=== PATIENT | female | born 1990 | race Caucasian/White ===

== ENCOUNTER → 2017-03-29 14:42 | Outpatient (CLI) | payer OTHER, SELFPAY ==
[2017-03-29 20:20] LABS: Thyroid Stim Hormone (TSH) 1.82 uIU/mL (0.358-3.74)
== END ==
PROVIDERS: Family Provider Family Medicine; PCP Family Medicine; Visit Provider Obstetrics & Gynecology
DX: E03.9 Hypothyroidism, unspecified (principal)
CPT/HCPCS: 84443

== ENCOUNTER → 2017-06-07 13:13 | Outpatient (CLI) | payer OTHER, SELFPAY ==
[2017-06-07 14:17] LABS: Hematocrit 36.1 % (37-47); Mean Corp Hgb Conc 33.2 g/gl (32-36); Mean Corpuscular Hgb 30.4 pg (27.0-32.0); Mean Corpuscular Volume 91.4 fL (81-99); Mean Platelet Vol. 10.3 fl (6.2-12.0); Platelet Count 329 K/mm3 (150-450); RBC Distribution Width SD 43.4 fl (35.1-43.9); Red Blood Count 3.95 M/mm3 (4.2-5.4); White Blood Count 12.9 K/mm3 (4.4-11.0)
[2017-06-07 14:18] LABS: Scan Indicated on CBC? Y/N NO
[2017-06-07 14:35] LABS: Glucose Challenge Gest 1H 50g 114 mg/dL (70-140); Thyroid Stim Hormone (TSH) 1.61 uIU/mL (0.358-3.74)
== END ==
PROVIDERS: Visit Provider Obstetrics & Gynecology
DX: O99.280 Endocrine, nutritional and metabolic diseases complicating pregnancy, unspecified trimester (principal); E03.9 Hypothyroidism, unspecified; Z3A.00 Weeks of gestation of pregnancy not specified
CPT/HCPCS: 82950; 84443; 85027

== ENCOUNTER → 2017-06-21 16:21 | Outpatient (CLI) | payer OTHER, SELFPAY ==
[2017-06-21 17:08] LABS: ROM Internal Control Test YES-OK TO RESULT pt. (Internal QC); ROM Patient Test Negative (Negative)
== END ==
PROVIDERS: Visit Provider Obstetrics & Gynecology
DX: O26.899 Other specified pregnancy related conditions, unspecified trimester (principal); Z3A.00 Weeks of gestation of pregnancy not specified
CPT/HCPCS: 84112

== ENCOUNTER → 2017-08-01 18:26 | Outpatient (CLI) | payer OTHER, SELFPAY ==
[2017-08-01 19:46] LABS: Group B Strep DNA By PCR Negative (Negative); Internal Control PASS; Probe Check PASS; Specimen Processing Control PASS
== END ==
PROVIDERS: Family Provider Family Medicine; PCP Family Medicine; Visit Provider Obstetrics & Gynecology
DX: Z36.85 Encounter for antenatal screening for Streptococcus B (principal)
CPT/HCPCS: 87081; 87653

== ENCOUNTER 2017-08-20 01:08 | Inpatient (IN) | payer OTHER, SELFPAY ==
[2017-08-20] VITALS (28 sets, daily range): BP systolic 109–132; BP diastolic 44–77; PULSE 94–134; RESP 16–18; TEMP 36.6–37.1; O2SAT 96–100; BMI 25.3
[2017-08-20] MEDS: Lactated Ringers 1,000 ML 999 ML IV (02:00)
[2017-08-20 02:05] LABS: ROM Internal Control Test YES-OK TO RESULT pt. (Internal QC)
[2017-08-20 02:06] LABS: ROM Patient Test POSITIVE (Negative)
[2017-08-20 02:11] LABS: Hematocrit 33.7 % (37-47); Hemoglobin 11.2 g/dl (12.0-15.0); Mean Corp Hgb Conc 33.2 g/gl (32-36); Mean Corpuscular Hgb 27.7 pg (27.0-32.0); Mean Corpuscular Volume 83.4 fL (81-99); Mean Platelet Vol. 11.8 fl (6.2-12.0); Platelet Count 389 K/mm3 (150-450); RBC Distribution Width CV 14.5 % (11.6-14.6); RBC Distribution Width SD 42.5 fl (35.1-43.9); Red Blood Count 4.04 M/mm3 (4.2-5.4); White Blood Count 12.9 K/mm3 (4.4-11.0)
--- NOTE | 2017-08-20 02:13 | PCM.DCCSEC ---
Discharge Diet: No Restrictions Discharge Activity: May not drive while taking narcotic pain medications., May Shower, May Take a Tub Bath Return to work on:: 10/15/17 May resume sexual activity in: 4-6 weeks Lifting Restrictions: 20 pounds Additional Activity Instructions:: Nothing in the vagina for 4-6 weeks. You may return to work/school in 6-8 weeks. Change Dressing in (Days):: 4 Remove Dressing in (days):: 4 Cleanse incision/area with: Soap & Water, Keep Dressing Clean & Dry Additional Instructions: If you experience any of the following, contact your healthcare provider. Bleeding that soaks a pad every hour for 2 hours Fever 100.4 or higher Unrelieved incision or abdominal pain Swelling, redness, discharge or bleeding from your incision Problems urinating (including inability to urinate or burning while urinating). Visual changes Severe headache Flu-like symptoms Pain or redness in one of both of your breasts Pain, warmth, tenderness or swelling in your legs, especially the calf area Frequent nausea and vomiting Symptoms of depression or anxiety If you experience any of the following, call 911 or go to the nearest Emergency Room. Chest pain Problems breathing Seizure activity Partial or complete paralysis of a body part, slurred speech, weakness or drooping of the face, or a sudden inability to walk or hold your balance Allergies/Adverse Reactions: Allergies Penicillins [PCN] Allergy (Verified 08/20/17 01:55) Unknown tramadol Adverse Reaction (Verified 08/20/17 01:55) Chest tightness Medications to take at Discharge Pnv95/Ferrous Fumarate/FA [ Formula Tablet] 1 each PO DAILY 09/01/15 Docusate Sodium [Colace] 100 mg PO BID PRN PRN #30 cap 08/20/17 Levothyroxine Sodium [Synthroid] 75 mcg PO DAILY 08/20/17 Naproxen [Naprosyn] 250 - 500 mg PO TID PRN PRN #30 tab 08/20/17 Oxycodone [Oxyir] 5 - 10 mg PO Q6H PRN PRN 7 Days #28 tablet 08/20/17 Sertraline HCl [Zoloft] 100 mg PO DAILY 08/20/17 The following prescriptions were given: Oxycodone [Oxyir] 5 - 10 mg PO Q6H PRN PRN 7 Days #28 tablet PRN Reason: Mod-Severe Pain (4-11/14) Docusate Sodium [Colace] 100 mg PO BID PRN PRN #30 cap PRN Reason: Constipation Naproxen [Naprosyn] 250 - 500 mg PO TID PRN PRN #30 tab PRN Reason: Mild-Mod Pain (1-06/14) Follow-Up: Call to make an appointment with your doctor for an incision check in 1-2 weeks. You will also need a 6 week post- follow up appointment. Test results from this visit will be discussed in further detail at your follow-up appointment, if applicable. Please Follow Up With: Art Buitrago MD - [phone] When: Call to make an appointment for an incision check in 2 weeks. Primary Care Physician: Sotero Li III, MD [Primary Care Provider] - Proposed Discharge Date: 08/23/17
[2017-08-20 02:14] LABS: Scan Indicated on CBC? Y/N NO
--- NOTE | 2017-08-20 02:21 | DCINST_ITS ---
Discharge Diet: No Restrictions Discharge Activity: May not drive while taking narcotic pain medications., May Shower, May Take a Tub Bath Return to work on:: 10/15/17 May resume sexual activity in: 4-6 weeks Lifting Restrictions: 20 pounds Additional Activity Instructions:: Nothing in the vagina for 4-6 weeks. You may return to work/school in 6-8 weeks. Change Dressing in (Days):: 4 Remove Dressing in (days):: 4 Cleanse incision/area with: Soap & Water, Keep Dressing Clean & Dry Additional Instructions: If you experience any of the following, contact your healthcare provider. * Bleeding that soaks a pad every hour for 2 hours * Fever 100.4 or higher * Unrelieved incision or abdominal pain * Swelling, redness, discharge or bleeding from your incision * Problems urinating (including inability to urinate or burning while urinating) . * Visual changes * Severe headache * Flu-like symptoms * Pain or redness in one of both of your breasts * Pain, warmth, tenderness or swelling in your legs, especially the calf area * Frequent nausea and vomiting * Symptoms of depression or anxiety If you experience any of the following, call 911 or go to the nearest Emergency Room. * Chest pain * Problems breathing * Seizure activity * Partial or complete paralysis of a body part, slurred speech, weakness or drooping of the face, or a sudden inability to walk or hold your balance Allergies/Adverse Reactions: Allergies Penicillins [PCN] Allergy (Verified 08/20/17 01:55) Unknown tramadol Adverse Reaction (Verified 08/20/17 01:55) Chest tightness Medications to take at Discharge Pnv95/Ferrous Fumarate/FA [ Formula Tablet] 1 each PO DAILY 09/01/15 Docusate Sodium [Colace] 100 mg PO BID PRN PRN #30 cap 08/20/17 Levothyroxine Sodium [Synthroid] 75 mcg PO DAILY 08/20/17 Naproxen [Naprosyn] 250 - 500 mg PO TID PRN PRN #30 tab 08/20/17 Oxycodone [Oxyir] 5 - 10 mg PO Q6H PRN PRN 7 Days #28 tablet 08/20/17 Sertraline HCl [Zoloft] 100 mg PO DAILY 08/20/17 The following prescriptions were given: Oxycodone [Oxyir] 5 - 10 mg PO Q6H PRN PRN 7 Days #28 tablet PRN Reason: Mod-Severe Pain (4-11/14) Docusate Sodium [Colace] 100 mg PO BID PRN PRN #30 cap PRN Reason: Constipation Naproxen [Naprosyn] 250 - 500 mg PO TID PRN PRN #30 tab PRN Reason: Mild-Mod Pain (1-06/14) Follow-Up: Call to make an appointment with your doctor for an incision check in 1-2 weeks. You will also need a 6 week post- follow up appointment. Test results from this visit will be discussed in further detail at your follow- up appointment, if applicable. Please Follow Up With: Art Buitrago MD - [phone] When: Call to make an appointment for an incision check in 2 weeks. Primary Care Physician: Sotero Li III, MD [Primary Care Provider] - Proposed Discharge Date: 08/23/17
[2017-08-20] MEDS: Sodium Citrate/Citric Acid 30 ML UDC PO ×2 (02:54→03:00)
[2017-08-20] MEDS: Lactated Ringers 1,000 ML 150 ML IV (03:00)
[2017-08-20] MEDS: Cefazolin 2 GM in 0.9% Normal Saline 100 ML IV (03:15)
--- NOTE | 2017-08-20 03:56 | PCM.OP.BLANK ---
Operative Report Date of Procedure: 08/20/17 PROCEDURE: Primary C section. Preoperative diagnosis: 38 3/7 wk EGA SROM Breech presentation, miguel Postop diagnosis: 38 3/7 wk EGA SROM Breech presentation, miguel Anesthesia: Spinal Mayra Boswell MD Surgeon: Cassi Kaminski MD Facilities Maintenance Manager: BC Gong LOCAL GOVERNMENT LEGISLATOR CALLED to attend : Dr. Reza. EBL 600 cc Complications: none Drains: Hussein draining clear yellow Fluids: replacement LR Findings: At amniotomy, minimal fluid noted consistent with SROM. Montilla viable female in miguel breech presentation. Apgars 6/6/9, Baby weight 6# 13 oz. There were normal appearing fallopian tubes and ovaries bilaterally, and a normal appearing uterus PATH: routine cord gas sent. Narrative account: After the risks, benefits and alternatives of the procedure were reviewed with the patient, informed consent was obtained. The patient was taken to the Operating room with an IV running, and placed in a seated position on the operating table for placement of the spinal. Once the spinal had been administered, she was briefly frog-legged for Hussein catheter placement, and then repositioned to dorsal supine position with leftward displacement of the uterus, and prepped and draped in the usual sterile fashion. Once the spinal was deemed adequate, a Pfannenstiel skin incision was created using the knife. The incision was carried down to the rectus fascia using the knife. The fascia was nicked in the midline. The fascial incision was extended bilaterally using curved Sanchez scissors. The superior aspect of the fascial incision was grasped with Jodi clamps and tented up and the underlying rectus abdominal muscles were dissected free. In a similar manner, the inferior aspect of the facial incision was grasped with Jodi clamps tented up and the underlying rectus abdominal muscles were dissected free. The rectus abdominis muscles were in the midline and the peritoneum was identified and entered by blunt dissection high in the incision. The peritoneal incision was extended superiorly and then inferiorly The peritoneum was stretched laterally and a bladder blade was inserted. A bladder flap was created long the lower uterine segment. The uterine incision was then created using Metzenbaum scissors. The operators fingertips were used to extend the uterine incision by blunt dissection in a caudad- cephalad orientation . The breech was then delivered up to the level of the shoulders. The arms were reduced and the head delivered easily. The OP and nares were bulb suctioned on the abdomen. The baby initially had a spontaneous vigorous cry. The cord was clamped x two and cut. And the was handed off to the nurse awaiting delivery after briefly showing her to her mother and father. The umbilical cord was doubly clamped for routine cord gas(es). The placenta was then delivered. The uterus was exteriorized and cleared of clots and debris. The uterine incision was repaired with 1 Vicryl in a running locked fashion. A second imbricating layer was then placed, using 1 Monocryl in running nonlocked fashion. At this point the uterus was returned to the abdominal cavity. The gutters were cleared of clots and debris and the incision at the uterus was inspected. Excellent hemostasis was noted. The peritoneal edges and rectus abdominis muscles were reapproximated in the midline with vertical mattress stitches and figure of eight stitches of 1 Vicryl . Bovie cautery was used for hemostasis at the subfascial space and Elas was applied to this layer. A figure of eight suture was placed at the R lower anterior rectus body for a superficial bleeding vessel noted there. The fascia was then closed in a running nonlocked fashion with a Stratofix suture. The Subcutaneous fatty tissue was Bovie cauterized as needed for hemostasis. Elsa was liberally dusted at this layer. This layer was then reapproximated with a single layer of running 3-0 Vicryl to eliminate space. The skin edges were closed in a Subcuticular stitch of 4-0 Vicryl. The incision was cleansed. Cavilon, Steristrips, and a Mepilex dressing were then applied. The patient was then transferred to the recovery room bed in stable condition after tolerating the procedure well. Sponge, lap, needle and instrument counts correct times two. Medications given preop and intraoperatively included: Ancef 2 gm given personal protection specialist to the operating room. The patient also received Pitocin given IV after cord clamp, and Toradol 30 mg IV times one. For a complete listing of medications given preop and intraoperatively, please see the anesthesia record.
[2017-08-20] MEDS: Lactated Ringers 1,000 ML 100 ML IV ×2 (04:40→06:47)
--- NOTE | 2017-08-20 06:25 | EKGRS_ITS ---
Test Reason : INCR HR Blood Pressure : / mmHG Vent. Rate : 119 BPM Atrial Rate : 119 BPM P-R Int : 116 ms QRS Dur : 074 ms QT Int : 322 ms P-R-T Axes : 064 049 027 degrees QTc Int : 452 ms Sinus tachycardia Per ekg machine/ done on mom, not baby Confirmed by MARQUIS ZAVALA, FRANCISCO ([id number]), continuity editor STEVE BRADSHAW ([id number]) on 08/28/2017 12:53:37 PM Referred By: ALO Confirmed By:FRANCISCO CHO MD
[2017-08-20] MEDS: Levothyroxine 75 MCG Tablet PO (06:46)
[2017-08-20 07:16] LABS: Absolute Lymphocyte Count 1.13 X10^3/ul (0.83-4.51); Absolute Neutrophil Count 18.8 X10^3/uL (2.0-7.7); Basophil# 0.02 X10^3/uL; Basophil% 0.1 % (0-1); Eosinophil# 0.03 X10^3/uL; Eosinophils% 0.1 % (0-5); Hematocrit 30.1 % (37-47); Hemoglobin 9.8 g/dl (12.0-15.0); Lymphocyte # 1.13 X10^3/ul (4.0); Lymphocyte % 5.2 % (19-41); Mean Corp Hgb Conc 32.6 g/gl (32-36); Mean Corpuscular Hgb 27.1 pg (27.0-32.0); Mean Corpuscular Volume 83.4 fL (81-99); Mean Platelet Vol. 10.7 fl (6.2-12.0); Monocyte% 7.4 % (0-10); Neutrophil # 18.77 X10^3/uL (2.7-7.7); Neutrophil % 87.1 % (47-70); Platelet Count 289 K/mm3 (150-450); RBC Distribution Width CV 14.7 % (11.6-14.6); RBC Distribution Width SD 44.7 fl (35.1-43.9); Red Blood Count 3.61 M/mm3 (4.2-5.4); White Blood Count 21.6 K/mm3 (4.4-11.0)
[2017-08-20 07:19] LABS: Differential Indicated SCAN CRITERIA MET; POSITIVE COUNT NO; POSITIVE DIFFERENTIAL YES; POSITIVE MORPHOLOGY NO
--- NOTE | 2017-08-20 07:30 | NURSING ---
Dr. Kaminski at bedside. LARC addressed and patient declined. Dr. Kaminski states she will sign LARC form at a later time.
[2017-08-20] MEDS: Prenatal Vits Tablet 1 TABLET PO (10:11)
[2017-08-20] MEDS: Ketorolac 30 MG/ML Syringe IV ×3 (10:13→21:39)
[2017-08-20] MEDS: 0.9% Saline Lock 10 ML Syringe IV ×2 (10:14→15:58)
--- NOTE | 2017-08-20 15:00 | NURSING ---
Patient up to chair for first time with minimal nursing assistance. Tolerated transfer well. No symptoms upon transfer.
[2017-08-20] MEDS: Sertraline 100 MG Tablet PO (21:39)
[2017-08-21 02:00] VITALS: RESP 16; O2SAT 100
[2017-08-21] MEDS: Ketorolac 30 MG/ML Syringe IV ×2 (03:48→10:11)
[2017-08-21] MEDS: 0.9% Saline Lock 10 ML Syringe IV ×2 (03:51→10:11)
[2017-08-21 04:00] VITALS: BP 117/70; PULSE 100; RESP 16; TEMP 36.6; O2SAT 98
[2017-08-21 05:14] LABS: Hematocrit 28.2 % (37-47); Hemoglobin 9.2 g/dl (12.0-15.0); Mean Corp Hgb Conc 32.6 g/gl (32-36); Mean Corpuscular Hgb 27.5 pg (27.0-32.0); Mean Corpuscular Volume 84.4 fL (81-99); Mean Platelet Vol. 11.1 fl (6.2-12.0); Platelet Count 312 K/mm3 (150-450); RBC Distribution Width CV 14.7 % (11.6-14.6); RBC Distribution Width SD 42.9 fl (35.1-43.9); Red Blood Count 3.34 M/mm3 (4.2-5.4); White Blood Count 15.5 K/mm3 (4.4-11.0)
[2017-08-21 05:28] LABS: Scan Indicated on CBC? Y/N NO
--- NOTE | 2017-08-21 06:49 | PCM.PN.OB ---
Subjective: Patient without complaints. Tolerating diet well. Positive flatus. Breast-feeding going well. - Physical Exam Vital Signs Temp Pulse Resp BP Pulse Ox 97.8 F 100 16 117/70 98 08/21/17 04:00 08/21/17 04:00 08/21/17 04:00 08/21/17 04:00 08/21/17 04:00 Oxygen Delivery Method Room Air Weight: 157 lb Body Mass Index (BMI) 25.3 Intake and Output for Last 24 Hours 08/19/17 08/20/17 08/21/17 23:59 23:59 23:59 Intake Total 5889 / 5889 Output Total 2600 / 2600 700 / 700 Balance 3289 / 3289 -700 / -700 Laboratory Tests Past 24 Hrs 08/20/17 08/21/17 06:55 04:00 WBC 21.6 H 15.5 H RBC 3.61 L 3.34 L Hgb 9.8 L 9.2 L Hct 30.1 L 28.2 L MCV 83.4 84.4 MCH 27.1 27.5 MCHC 32.6 32.6 RDW 14.7 H 14.7 H RDW Differential 44.7 H 42.9 Plt Count 289 312 MPV 10.7 11.1 Immature Gran % (Auto) 0.100 Neut % (Auto) 87.1 H Lymph % (Auto) 5.2 L [place] % (Auto) 7.4 Eos % (Auto) 0.1 Baso % (Auto) 0.1 Absolute Neuts (auto) 18.8 H Absolute Lymphs (auto) 1.13 Total Counted Not Reportable Differential Comment COMMENT Diff Path Review May foll Wound is clean, dry, intact. Good urine output. Hemoglobin okay. Medical Necessity - Tobacco Use Smoking Status: Never smoker Assessment/Plan Doing well postoperative day #1 primary for breech. Continuing present care.
[2017-08-21] MEDS: Levothyroxine 75 MCG Tablet PO (07:24)
[2017-08-21 08:00] VITALS: BP 112/68; PULSE 93; RESP 18; TEMP 36.9; O2SAT 95
[2017-08-21 09:45] LABS: Pathologist Review Reviewed
[2017-08-21] MEDS: Prenatal Vits Tablet 1 TABLET PO (10:21)
[2017-08-21 15:30] VITALS: BP 96/65; PULSE 98; RESP 20; TEMP 36.7; O2SAT 96
[2017-08-21] MEDS: Naproxen 250 MG Tablet PO (15:50)
[2017-08-21] MEDS: Acetaminophen 500 MG Tablet 1000 MG PO (16:45)
[2017-08-21 19:55] VITALS: BP 98/71; PULSE 94; RESP 18; TEMP 36.5; O2SAT 99
[2017-08-21] MEDS: Sertraline 100 MG Tablet PO (21:47)
[2017-08-22] MEDS: Naproxen 250 MG Tablet PO (00:13)
[2017-08-22 01:15] VITALS: BP 103/73; PULSE 94; RESP 18; TEMP 36.6
[2017-08-22] MEDS: Acetaminophen 500 MG Tablet 1000 MG PO (01:20)
[2017-08-22] MEDS: Levothyroxine 75 MCG Tablet PO (05:57)
[2017-08-22] MEDS: Prenatal Vits Tablet 1 TABLET PO (07:47)
[2017-08-22 07:52] VITALS: BP 119/71; PULSE 104; RESP 16; TEMP 36.7; O2SAT 96
--- NOTE | 2017-08-22 09:27 | PCM.PN.OB ---
Subjective: Patient without complaints. Tolerating diet well. Ready to go home today. - Physical Exam Vital Signs Temp Pulse Resp BP Pulse Ox 98.0 F 104 H 16 119/71 96 08/22/17 07:52 08/22/17 07:52 08/22/17 07:52 08/22/17 07:52 08/22/17 07:52 Oxygen Delivery Method Room Air Weight: 157 lb Body Mass Index (BMI) 25.3 Intake and Output for Last 24 Hours 08/20/17 08/21/17 08/22/17 23:59 23:59 23:59 Intake Total 5889 / 5889 Output Total 2600 / 2600 700 / 700 Balance 3289 / 3289 -700 / -700 Laboratory Tests Past 24 Hrs 08/20/17 06:55 Diff Path Review Reviewed Medical Necessity - Tobacco Use Smoking Status: Never smoker Assessment/Plan Doing well. Will release to home with routine instructions.
== END 2017-08-22 10:15 | disposition home or self-care (01) | DRG 766 ==
PROVIDERS: Admitting Provider Obstetrics & Gynecology; Family Provider Family Medicine; PCP Family Medicine; Visit Provider Obstetrics & Gynecology
DX: O99.344 Other mental disorders complicating childbirth (principal); O32.1XX0 Maternal care for breech presentation, not applicable or unspecified; F41.9 Anxiety disorder, unspecified; Z3A.38 38 weeks gestation of pregnancy; Z37.0 Single live birth; Z79.899 Other long term (current) drug therapy
CPT/HCPCS: 59025; 59050; 84112; 85025; 85027; 86850; 86900; 93005; 99218; J7120; A4216; G0378; J2405

== ENCOUNTER → 2017-10-10 15:08 | Outpatient (CLI) | payer OTHER, SELFPAY ==
[2017-10-10 16:19] LABS: Thyroid Stim Hormone (TSH) 0.18 uIU/mL (0.358-3.74)
== END ==
PROVIDERS: Visit Provider Obstetrics & Gynecology
DX: E03.9 Hypothyroidism, unspecified (principal)
CPT/HCPCS: 36415; 84443

== ENCOUNTER → 2017-12-22 10:49 | Outpatient (CLI) | payer OTHER, SELFPAY ==
[2017-12-22 12:29] LABS: Thyroid Stim Hormone (TSH) 0.78 uIU/mL (0.358-3.74)
== END ==
PROVIDERS: Family Provider Family Medicine; PCP Family Medicine; Referring Provider Obstetrics & Gynecology; Visit Provider Obstetrics & Gynecology
DX: E03.9 Hypothyroidism, unspecified (principal)
CPT/HCPCS: 36415; 84443

== ENCOUNTER → 2018-06-25 | Outpatient (CLI) | payer OTHER, SELFPAY ==
[2018-06-05 16:58] VITALS: BMI 23.0
[2018-06-25 12:54] LABS: Absolute Lymphocyte Count 1.76 X10^3/ul (0.83-4.51); Absolute Neutrophil Count 5.2 X10^3/uL (2.0-7.7); Basophil# 0.03 X10^3/uL; Basophil% 0.4 % (0-1); Eosinophil# 0.23 X10^3/uL; Eosinophils% 2.9 % (0-5); Hematocrit 40.1 % (37-47); Hemoglobin 12.8 g/dl (12.0-15.0); Lymphocyte # 1.76 X10^3/ul (4.0); Lymphocyte % 22.3 % (19-41); Mean Corp Hgb Conc 31.9 g/gl (32-36); Mean Corpuscular Hgb 26.7 pg (27.0-32.0); Mean Corpuscular Volume 83.7 fL (81-99); Mean Platelet Vol. 10.1 fl (6.2-12.0); Monocyte# 0.65 X10^3/uL; Monocyte% 8.2 % (0-10); Neutrophil # 5.22 X10^3/uL (2.7-7.7); Neutrophil % 66.1 % (47-70); Platelet Count 392 K/mm3 (150-450); RBC Distribution Width CV 15.3 % (11.6-14.6); RBC Distribution Width SD 46.7 fl (35.1-43.9); Red Blood Count 4.79 M/mm3 (4.2-5.4); White Blood Count 7.9 K/mm3 (4.4-11.0)
[2018-06-25 12:55] LABS: POSITIVE COUNT NO; POSITIVE DIFFERENTIAL NO; POSITIVE MORPHOLOGY NO
[2018-06-25 13:23] LABS: Anion Gap 7 (5-15); BUN 10 mg/dL (7-18); BUN/Creat Ratio 12.2 RATIO (10-20); Calcium,Total 8.7 mg/dL (8.5-10.1); Chloride 106 mmol/L (98-107); Creatinine, Serum 0.82 mg/dL (0.55-1.02); EST Glomerular Filtration Rate 90 mL/min (>60); Est Glom Filt Rate - Afr Amer 109 mL/min (>60); Glucose 114 mg/dL (74-106); Potassium 3.7 mmol/L (3.5-5.1); Sodium Level 141 mmol/L (136-145); Thyroid Stim Hormone (TSH) 3.37 uIU/mL (0.358-3.74)
== END | disposition home or self-care (01) ==
LOC: LAB 11:56
PROVIDERS: Family Provider Internal Medicine; PCP Internal Medicine; Referring Provider Internal Medicine; Visit Provider Internal Medicine
DX: E03.9 Hypothyroidism, unspecified (principal)
CPT/HCPCS: 36415; 80048; 84443; 85025

== ENCOUNTER → 2018-09-27 | Outpatient (CLI) | payer OTHER, SELFPAY ==
[2018-09-26 18:01] VITALS: BMI 25.4
[2018-09-27 13:22] LABS: Thyroid Stim Hormone (TSH) 2.03 uIU/mL (0.358-3.74)
[2018-10-02 10:24] LABS: T3 Reverse 16.7 ng/dL (9.2-24.1)
[2018-10-02 10:25] LABS: ANTINUCLEAR ANTIBODIES DIRECT Negative (Negative)
== END | disposition home or self-care (01) ==
PROVIDERS: Family Provider Internal Medicine; PCP Internal Medicine; Referring Provider Internal Medicine; Visit Provider Internal Medicine
DX: E03.9 Hypothyroidism, unspecified (principal); R53.83 Other fatigue
CPT/HCPCS: 36415; 84443; 84482; 86038; 86225; 86235

== ENCOUNTER → 2018-10-02 | Outpatient (CLI) | payer OTHER, SELFPAY ==
[2018-09-26 18:01] VITALS: BMI 25.4
--- NOTE | 2018-10-02 12:06 | EKG12_ITS ---
Test Reason : TACHYCARDIA Blood Pressure : / mmHG Vent. Rate : 075 BPM Atrial Rate : 075 BPM P-R Int : 138 ms QRS Dur : 080 ms QT Int : 380 ms P-R-T Axes : 045 053 028 degrees QTc Int : 424 ms Normal sinus rhythm with sinus arrhythmia Normal ECG Confirmed by CHANDANA CARLOS ([id number]), communications editor CHAS VAUGHN ([id number]) on 10/08/2018 10:19:22 AM Referred By: Francesca Uribe Confirmed By:CHANDANA CARLOS
== END | disposition home or self-care (01) ==
LOC: CVS 12:05
PROVIDERS: Family Provider Internal Medicine; PCP Internal Medicine; Referring Provider Internal Medicine; Visit Provider Internal Medicine
DX: R00.0 Tachycardia, unspecified (principal)
CPT/HCPCS: 93005

== ENCOUNTER → 2019-01-17 08:21 | Outpatient (CLI) | payer OTHER, SELFPAY ==
[2018-12-04 16:46] VITALS: BMI 25.7
[2019-01-17 09:15] LABS: hCG Titer Quant., Serum 513 mIU/mL (1-3)
== END ==
PROVIDERS: Family Provider Internal Medicine; PCP Internal Medicine; Referring Provider Obstetrics & Gynecology; Visit Provider Obstetrics & Gynecology
DX: N91.2 Amenorrhea, unspecified (principal)
CPT/HCPCS: 36415; 84702

== ENCOUNTER → 2019-01-19 09:02 | Outpatient (CLI) | payer OTHER, SELFPAY ==
[2018-12-04 16:46] VITALS: BMI 25.7
[2019-01-19 10:22] LABS: Thyroid Stim Hormone (TSH) 3.01 uIU/mL (0.358-3.74)
[2019-01-19 10:26] LABS: hCG Titer Quant., Serum 1017 mIU/mL (1-3)
== END ==
PROVIDERS: Family Provider Internal Medicine; PCP Internal Medicine; Visit Provider Obstetrics & Gynecology
DX: E03.9 Hypothyroidism, unspecified (principal); N91.2 Amenorrhea, unspecified
CPT/HCPCS: 84443; 84702

== ENCOUNTER → 2019-02-06 12:18 | Outpatient (CLI) | payer OTHER, SELFPAY ==
[2018-12-04 16:46] VITALS: BMI 25.7
--- NOTE | 2019-02-06 12:19 | US_ITS ---
STUDY: FIRST TRIMESTER OBSTETRICAL ULTRASOUND REASON FOR EXAM: Female, 28 years old. Viability. LMP: December 20, 2018. TECHNIQUE: Transvaginal TECHNICAL QUALITY: Adequate. PRIOR ULTRASOUND: None. FINDINGS: There is visualization of a single gestational sac in a normal intrauterine position. The mean sac diameter (MSD) measures 2.3 cm, indicating an estimated gestational age (EGA) of 7 weeks, 2 days. The gestational sac shape is within normal limits. There is a visualized yolk sac. The yolk sac measures 0.23 cm. The placenta is non-visualized. There is visualization of a live embryo. The crown-rump length (CRL) measures 0.87 cm, indicating an estimated gestational age (EGA) of 6 weeks, 6 days. There is demonstrated cardiac activity with a heart rate of 135 bpm. The estimated gestation age (EGA) by LMP is 8 weeks, 6 days. The estimated date of delivery (DIO) by LMP is September 12, 2019. The estimated gestation age (EGA) by US is 7 weeks, 0 days. The estimated date of delivery (DIO) by US is September 25, 2019. The uterus measures 8.2 x 7.1 x 4.7 cm. There is a small subchorionic hemorrhage adjacent to the gestational sac. There is no demonstrated uterine fibroid. The cervix is closed. The right ovary measures 3.2 x 2.2 x 2.1 cm. There are multiple follicles of the right ovary without a dominant cyst. There is no visualized right adnexal mass or complex lesion. The left ovary measures 4.0 x 3.0 x 2.1 cm. There are multiple follicles of the left ovary without a dominant cyst. There is no visualized left adnexal mass or complex lesion. There is no fluid in the cul de sac. US/Transvaginal w/Preg US IMPRESSION: 1. Live single intrauterine at 7 weeks, 0 days. DIO is September 25, 2019. 2. heart rate of 125 bpm. 3. Small subchorionic hemorrhage. 4. Normal ovaries. Electronically Signed: Rogelio Cohen DO at 16:44 EST Tel [phone], Service support ,
== END ==
PROVIDERS: Family Provider Internal Medicine; PCP Internal Medicine; Referring Provider Obstetrics & Gynecology; Visit Provider Obstetrics & Gynecology
DX: O36.80X0 Pregnancy with inconclusive fetal viability, not applicable or unspecified (principal); Z3A.00 Weeks of gestation of pregnancy not specified
CPT/HCPCS: 76817

== ENCOUNTER → 2019-02-26 16:56 | Outpatient (CLI) | payer OTHER, SELFPAY ==
[2019-02-26 13:10] VITALS: BMI 25.4
[2019-02-26 18:09] LABS: Amphetamine Urine VISTA NEGATIVE (<1000 ng/mL); Barbiturate Urine VISTA NEGATIVE (< 200 ng/mL); Benzodiazepine Urine VISTA NEGATIVE (< 200 ng/mL); Cocaine Urine VISTA NEGATIVE (< 300 ng/mL); Ecstacy Urine VISTA NEGATIVE (< 500 ng/mL); Methadone Urine VISTA NEGATIVE (< 300 ng/mL); PCP Urine VISTA NEGATIVE (< 25 ng/mL); THC Urine VISTA NEGATIVE (< 50 ng/mL); Vista UDS pH Range 6
[2019-02-26 19:10] LABS: Chlamydia Trachomatis by PCR Negative (Negative); Neisserai gonorrhoeae by PCR Negative (Negative); Probe Check PASS; Sample Adequacy Control PASS; Specimen Processing Control PASS
[2019-03-03 17:06] LABS: HPV Reflexed? NOT INDICATED
== END ==
PROVIDERS: PCP Internal Medicine; Referring Provider Obstetrics & Gynecology; Visit Provider Obstetrics & Gynecology
DX: O99.280 Endocrine, nutritional and metabolic diseases complicating pregnancy, unspecified trimester (principal); E05.90 Thyrotoxicosis, unspecified without thyrotoxic crisis or storm; Z3A.00 Weeks of gestation of pregnancy not specified
CPT/HCPCS: 80307; 87086; 87088; 87491; 87591; 88175; G0145

== ENCOUNTER → 2019-02-27 11:48 | Outpatient (CLI) | payer OTHER, SELFPAY ==
[2019-02-26 13:10] VITALS: BMI 25.4
[2019-02-27 12:41] LABS: Absolute Lymphocyte Count 1.53 X10^3/uL (0.83-4.51); Absolute Neutrophil Count 8.1 X10^3/uL (2.0-7.7); Basophil# 0.04 X10^3/uL; Basophil% 0.4 % (0-1); Eosinophil# 0.12 X10^3/uL; Eosinophils% 1.1 % (0-5); Hemoglobin 12.6 g/dL (12.0-15.0); Lymphocyte # 1.53 X10^3/ul (4.0); Lymphocyte % 14.6 % (19-41); Mean Corp Hgb Conc 33.2 g/dL (32-36); Mean Corpuscular Hgb 29.2 pg (27.0-32.0); Mean Corpuscular Volume 88.2 fL (81-99); Mean Platelet Vol. 10.4 fl (6.2-12.0); Monocyte# 0.64 X10^3/uL; Monocyte% 6.1 % (0-10); NRBC Flagged by Analyzer 0 % (0-5); Neutrophil # 8.14 X10^3/uL (2.7-7.7); Neutrophil % 77.5 % (47-70); Platelet Count 348 K/mm3 (150-450); RBC Distribution Width CV 16.6 % (11.6-14.6); RBC Distribution Width SD 53.5 fl (35.1-43.9); Red Blood Count 4.31 M/mm3 (4.2-5.4); White Blood Count 10.5 K/mm3 (4.4-11.0)
[2019-02-27 13:25] LABS: NATERA MAILED SPECIMEN
[2019-02-27 14:04] LABS: HIV - WCH Non-Reactive (Nonreactive); Hepatitis B Surface Antigen Non-Reactive (Nonreactive); Hepatitis C Antibody Non-Reactive (Nonreactive); Rubella IgG 120.5 IU/mL
[2019-03-06 03:15] LABS: Rapid Plasmin Reagin (RPR) NONREACTIVE (NONREACTIVE)
== END ==
PROVIDERS: PCP Internal Medicine; Referring Provider Obstetrics & Gynecology; Visit Provider Obstetrics & Gynecology
DX: O99.280 Endocrine, nutritional and metabolic diseases complicating pregnancy, unspecified trimester (principal); E05.90 Thyrotoxicosis, unspecified without thyrotoxic crisis or storm; Z3A.00 Weeks of gestation of pregnancy not specified
CPT/HCPCS: 36415; 84443; 85025; 86592; 86703; 86762; 86803; 86850; 86900; 86901; 87340

== ENCOUNTER → 2019-04-28 | Outpatient (CLI) | payer OTHER, SELFPAY ==
[2019-04-25 11:53] VITALS: BMI 25.4
[2019-04-28 09:50] LABS: Thyroid Stim Hormone (TSH) 2.38 uIU/mL (0.358-3.74)
== END | disposition home or self-care (01) ==
LOC: LAB 08:35
PROVIDERS: PCP Internal Medicine; Referring Provider Obstetrics & Gynecology; Visit Provider Obstetrics & Gynecology
DX: E03.9 Hypothyroidism, unspecified (principal)
CPT/HCPCS: 36415; 84443

== ENCOUNTER → 2019-07-02 08:58 | Outpatient (CLI) | payer OTHER, SELFPAY ==
[2019-06-06 10:31] VITALS: BMI 25.4
[2019-07-02 09:26] LABS: Absolute Lymphocyte Count 1.17 X10^3/uL (0.83-4.51); Absolute Neutrophil Count 9.9 X10^3/uL (2.0-7.7); Basophil# 0.04 X10^3/uL; Basophil% 0.3 % (0-1); Eosinophils% 1.7 % (0-5); Hematocrit 33.6 % (37-47); Hemoglobin 10.5 g/dL (12.0-15.0); Lymphocyte # 1.17 X10^3/ul (4.0); Lymphocyte % 9.7 % (19-41); Mean Corp Hgb Conc 31.3 g/dL (32-36); Mean Corpuscular Volume 89.6 fL (81-99); Mean Platelet Vol. 10.2 fl (6.2-12.0); Monocyte# 0.63 X10^3/uL; Monocyte% 5.2 % (0-10); NRBC Flagged by Analyzer 0 % (0-5); Neutrophil # 9.93 X10^3/uL (2.7-7.7); Neutrophil % 82.7 % (47-70); Platelet Count 320 K/mm3 (150-450); RBC Distribution Width CV 13.1 % (11.6-14.6); RBC Distribution Width SD 42.8 fl (35.1-43.9); Red Blood Count 3.75 M/mm3 (4.2-5.4)
[2019-07-02 09:46] LABS: Glucose Challenge Gest 1H 50g 138 mg/dL (70-140)
== END ==
PROVIDERS: PCP Internal Medicine; Referring Provider Obstetrics & Gynecology; Visit Provider Obstetrics & Gynecology
DX: Z34.90 Encounter for supervision of normal pregnancy, unspecified, unspecified trimester (principal)
CPT/HCPCS: 36415; 82950; 85025

== ENCOUNTER → 2019-07-08 | Outpatient (CLI) | payer OTHER, SELFPAY ==
[2019-06-06 10:31] VITALS: BMI 25.4
[2019-07-04 11:49] VITALS: BMI 25.4
[2019-07-08 09:33] LABS: Glucose GTT-Gestation. Fasting 89 mg/dL (<105)
[2019-07-08 10:38] LABS: Glucose GTT-Gestational 1 Hr 172 mg/dL (<190)
[2019-07-08 11:55] LABS: Glucose GTT-Gestational 2 Hr 145 mg/dL (<165)
[2019-07-08 12:56] LABS: Glucose GTT-Gestational 3 Hr 143 L (<145)
== END | disposition home or self-care (01) ==
LOC: LAB 08:46
PROVIDERS: PCP Internal Medicine; Referring Provider Obstetrics & Gynecology; Visit Provider Obstetrics & Gynecology
DX: O99.810 Abnormal glucose complicating pregnancy (principal); Z3A.00 Weeks of gestation of pregnancy not specified
CPT/HCPCS: 36415; 82951; 82952

== ENCOUNTER → 2019-08-04 | Outpatient (CLI) | payer OTHER, SELFPAY ==
[2019-08-01 11:42] VITALS: BMI 25.4
[2019-08-04 11:27] LABS: Absolute Lymphocyte Count 1.62 X10^3/uL (0.83-4.51); Absolute Neutrophil Count 10.4 X10^3/uL (2.0-7.7); Basophil# 0.05 X10^3/uL; Basophil% 0.4 % (0-1); Eosinophil# 0.14 X10^3/uL; Eosinophils% 1.1 % (0-5); Hematocrit 37.9 % (37-47); Hemoglobin 12.1 g/dL (12.0-15.0); Lymphocyte # 1.62 X10^3/ul (4.0); Lymphocyte % 12.3 % (19-41); Mean Corp Hgb Conc 31.9 g/dL (32-36); Mean Corpuscular Hgb 29.1 pg (27.0-32.0); Mean Corpuscular Volume 91.1 fL (81-99); Mean Platelet Vol. 10.5 fl (6.2-12.0); Monocyte# 0.92 X10^3/uL; NRBC Flagged by Analyzer 0 % (0-5); Neutrophil # 10.36 X10^3/uL (2.7-7.7); Neutrophil % 78.5 % (47-70); Platelet Count 300 K/mm3 (150-450); RBC Distribution Width CV 16.6 % (11.6-14.6); RBC Distribution Width SD 53.9 fl (35.1-43.9); Red Blood Count 4.16 M/mm3 (4.2-5.4); White Blood Count 13.2 K/mm3 (4.4-11.0)
[2019-08-04 11:50] LABS: Thyroid Stim Hormone (TSH) 1.89 uIU/mL (0.358-3.74)
== END | disposition home or self-care (01) ==
PROVIDERS: PCP Internal Medicine; Referring Provider Obstetrics & Gynecology; Visit Provider Obstetrics & Gynecology
DX: O99.012 Anemia complicating pregnancy, second trimester (principal); D64.9 Anemia, unspecified; O99.282 Endocrine, nutritional and metabolic diseases complicating pregnancy, second trimester; E03.9 Hypothyroidism, unspecified; Z3A.00 Weeks of gestation of pregnancy not specified
CPT/HCPCS: 36415; 84443; 85025

== ENCOUNTER → 2019-08-15 | Outpatient (CLI) | payer OTHER, SELFPAY ==
[2019-08-01 11:42] VITALS: BMI 25.4
[2019-08-15 11:44] VITALS: BMI 25.4
--- NOTE | 2019-08-15 13:35 | US_ITS ---
STUDY: SECOND AND THIRD TRIMESTER OBSTETRICAL ULTRASOUND REASON FOR EXAM: Female, 28 years old GROWTH LMP: December 19, 2018 TECHNIQUE: Transabdominal TECHNICAL QUALITY: Adequate. PRIOR ULTRASOUND: February 06, 2019. FINDINGS: There is a single intrauterine fetus. The fetus is in a cephalic presentation. There is demonstrated cardiac activity with a heart rate of 148 bpm. There is a normal amniotic fluid volume. The largest amniotic fluid pocket measures 4.1 cm. The amniotic fluid index (GUILLE) is 10.8 cm. The placenta is posterior in location and is not low lying. There are Grade 1 placental changes. The cervix measures 3.3 cm in length. The adnexal regions are not visualized. BIOMETRY: BPD: 8.23 cm: 33 weeks, 0 days HC: 30.51 cm: 33 weeks, 6 days AC: 30.93 cm: 30 weeks, 6 days FL: 6.4/7 on the: 33 weeks, 2 days CI: 80% FL/BPD: 79% FL/HC: FL/AC: 21% HC/AC: 0.99 age by current US: 33 weeks, 2 days. DIO by current US: October 01, 2019. Estimated weight: 2370 grams, +/- 351 grams, 45 %. age by prior US: 34 weeks, 1 days. DIO by prior US: September 25, 2019. Age by LMP: 34 weeks, 1 days. DIO by LMP: September 25, 2019. ANATOMY: Stable mild fullness of the bilateral renal pelves. US/OB Limited With Biometrics IMPRESSION: Single live intrauterine gestation with a mean gestational age of 34 weeks and 1 day. The measurements obtained today fall within the normal expected range. Electronically Signed: Conrad Celestin, at 8:23 EDT , Service support ,
== END | disposition home or self-care (01) ==
LOC: OPUS 13:35
PROVIDERS: PCP Internal Medicine; Visit Provider Obstetrics & Gynecology
DX: O26.849 Uterine size-date discrepancy, unspecified trimester (principal)
CPT/HCPCS: 76816

== ENCOUNTER → 2019-08-29 | Outpatient (CLI) | payer OTHER, SELFPAY ==
[2019-08-29 11:44] VITALS: BMI 25.4
== END | disposition home or self-care (01) ==
LOC: LABSPEC 16:22
PROVIDERS: PCP Internal Medicine; Referring Provider Obstetrics & Gynecology; Visit Provider Obstetrics & Gynecology
DX: O09.90 Supervision of high risk pregnancy, unspecified, unspecified trimester (principal); Z3A.00 Weeks of gestation of pregnancy not specified
CPT/HCPCS: 87081

== ENCOUNTER 2019-09-22 05:00 | Inpatient (IN) | payer OTHER, SELFPAY ==
[2019-09-12 11:30] VITALS: BMI 25.4
[2019-09-19 10:16] VITALS: BMI 25.4
[2019-09-22] VITALS (15 sets, daily range): BP systolic 96–119; BP diastolic 46–79; PULSE 77–111; RESP 16; TEMP 36.2–37.5; O2SAT 95–100; BMI 29.4
[2019-09-22] MEDS: Lactated Ringers 1,000 ML 999 ML IV (05:48)
[2019-09-22] MEDS: Acetaminophen 500 MG Tablet 1000 MG PO ×3 (05:59→19:20)
[2019-09-22 06:04] LABS: Absolute Lymphocyte Count 1.65 X10^3/uL (0.83-4.51); Absolute Neutrophil Count 8.3 X10^3/uL (2.0-7.7); Basophil# 0.03 X10^3/uL; Basophil% 0.3 % (0-1); Eosinophil# 0.14 X10^3/uL; Eosinophils% 1.3 % (0-5); Hemoglobin 13.2 g/dL (12.0-15.0); Lymphocyte # 1.65 X10^3/ul (4.0); Lymphocyte % 15.2 % (19-41); Mean Corpuscular Hgb 29.9 pg (27.0-32.0); Mean Corpuscular Volume 90.5 fL (81-99); Mean Platelet Vol. 11.5 fl (6.2-12.0); Monocyte# 0.72 X10^3/uL; Monocyte% 6.6 % (0-10); NRBC Flagged by Analyzer 0 % (0-5); Neutrophil # 8.28 X10^3/uL (2.7-7.7); POSITIVE COUNT YES; Platelet Count 159 K/mm3 (150-450); RBC Distribution Width CV 16.2 % (11.6-14.6); RBC Distribution Width SD 53.3 fl (35.1-43.9); Red Blood Count 4.42 M/mm3 (4.2-5.4); White Blood Count 10.9 K/mm3 (4.4-11.0)
[2019-09-22 06:06] LABS: Differential Indicated SCAN CRITERIA MET
[2019-09-22 06:14] LABS: Differential Comment SCANNED
[2019-09-22] MEDS: Lactated Ringers 1,000 ML 150 ML IV (06:49)
[2019-09-22] MEDS: Sodium Citrate/Citric Acid 30 ML UDC PO (07:07)
--- NOTE | 2019-09-22 07:23 | PCM.HPOB.BLA ---
- Problem List (1) Abnormal glucose affecting Status: Acute Comment: 3gtt nl (2) History of Status: Acute Comment: plan RLTCS due to cervix closed 08/20/2017. Desires 79% chance of success. handouts given. consent signed (3) Status: Acute Qualifiers: Comment: genetic testing- low risk, neg carrier screening in past. declined ntd screening. growth US normal (4) Supervision of high-risk Status: Acute Comment: PRR DIO 09-25-19 boy Efrain PC Shellie Spouse Eagle (5) Anxiety Status: Chronic Comment: Zoloft 50mg- denies depression, counseling encouraged (6) Hypothyroidism Status: Chronic Qualifiers: Comment: tested 1, 2, and 3rd TM. stable History and Physical Date of Admission: 09/22/19 Intake Vital Signs 09/19/19 Height 5 ft 3 in 09/19/19 Weight: 165 lb 09/19/19 BMI 29.2 09/19/19 BP 122/76 H Intake Visit Reasons: 39 WK OB Night Time Babysitter Required: No Is patient in pain?: No Allergies Penicillins [PCN] Allergy (Verified 09/19/19 10:12) Unknown tramadol Adverse Reaction (Verified 09/19/19 10:12) Chest tightness Medications Pnv No.95/Ferrous Fum/Folic AC [ Formula Tablet] 1 ea PO DAILY 09/01/15 [History Confirmed 09/19/19] sertraline 100 mg tablet 100 mg PO DAILY #90 tab 11/18/18 [Rx Confirmed 09/19/19] levothyroxine 50 mcg tablet 50 mcg PO DAILY #90 tab 01/22/19 [Rx Confirmed 09/19/19] ondansetron 4 mg disintegrating tablet 4 mg PO Q4H PRN #60 tab 03/17/19 [Rx Confirmed 09/19/19] Last Menstral Period: 12/06/18 Zika: Zika virus screening: Negative : No PFSH PFSH Medical History Anxiety (Chronic) Headaches, cluster (Chronic) Polycystic disease, ovaries (Chronic) Seasonal allergies (Chronic) Breast lump (Resolved) Hyperthyroidism (Resolved) UTI (urinary tract infection) (Resolved) Surgical History History of (Acute) Family History Mother Anxiety Hormonal disorder Grandmother Anxiety Heart disease Father Asthma Brother Depression Psychiatric care Grandfather Diabetes Hypertension Grandmother Thyroid disorder Other Cancer Social History (Updated 09/19/19 @ 13:[address] Elizabeth Sena MD) adopted: No household members: family housing: house number of children: 1 current occupational status: employed current occupation: Formerly [employer] current occupational exposures/hazards: No pets and animals: Yes history of recent travel: No sexually active: Yes Smoking Status: Never smoker second hand exposure: No alcohol intake: current alcohol intake frequency: holidays/special occasions only details: not while substance use type: does not use caffeine: Yes what type of physical activity do you participate in: aerobics frequency: 1-2 times per week seatbelt use: always do you feel safe at home: Yes 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 Date Name GA/Weeks Outcome Route Bth Weight [facility]17 Shellie 37 live - full term 6lbs 13oz Female spinal [facility] Dr. Gordy Guillermo Delivery Date: 08/20/17 On 02/26/19 @ 13:20 Cassi Cavanaugh No issues during . Breech- PPROM HPI 39 WK OB: Details: SHERYL ALFORD is a 28 year old @ 39w4d presents for RLTCS, cervix still closed so declines TOLAC at this time. consider TOLAC with next . OB Visit DIO Calculator Estimated Delivery Date Method Current WG Current Estimate 09/25/19 Ultrasound #1 39w 1d Other Estimates 09/12/19 LMP (Certain) 41w 0d Expected Delivery Route/Plan TOLAC if unfavorable at time of scheduled RCD patient counseled regarding risks/benefits of trial of labor versus repeat . ACOG and uptodate education given to patient. 76 % likelihood of success per calculator TOLAC consent form signed: yes Labor Preferences- labor support person: Eagle pain management options preferred: epidural cut cord/dad catch: yes : yes PP control planned: minipill discussed possible routes of delivery and associated risks: discussed possible delivery modalities and possible indications for each including R/B/A of , VAVD, and CS. questions answered. special requests: none Specific Issue/Plans flu vaccine: given tdap vaccine: given rhogam: na LARC form signed: yes movement and labor precautions reviewed. Problem list reviewed and updated with the most current plan of care details and appropriate orders placed. Relevant counseling for the gestational age provided. Continue routine care and follow up unless otherwise noted in visit notes/problem list details Initial Weight: 144 lb Date EGA Weight BP Urine Prot Glucose FHR FuHt Pres Dilation Effaced St Visit Note 02/26/19 9w 6d 144 lb (+0 oz) 112/70 160 03/28/19 14w 1d 146 lb (+2 lb) 132/70 Negative Negative 160 SM- no vb cramping 04/25/19 18w 1d 146 lb (+2 lb) 110/60 Negative Negative 150 SM- no vb cramping 06/06/19 24w 1d 151 lb (+7 lb) 120/66 Negative Negative 160 24 SM- no vb lof good fm no regular ctx 07/04/19 28w 1d 154 lb (+10 lb) 102/70 Negative Negative 153 28 MH-NO Vb, LOF. 3hr GTT scheduled. Reviewed use of FE. tdap. 07/18/19 30w 1d 156 lb 6 oz (+12 lb 6 oz) 118/64 Negative Negative 140 30 SM- no vb lof good fm no regular ctx 08/01/19 32w 1d 159 lb (+15 lb) 102/60 140 34 Sm- no vb lof good fm no regular ctx 08/15/19 34w 1d 161 lb (+17 lb) 118/60 Negative Negative 140 35 SM- no vb lof good fm no regular ctx. growth us today 08/29/19 36w 1d 164 lb 4 oz (+20 lb 4 oz) 140 36 Cephalic 0 SM- no vb lof good fm no regular ctx 09/05/19 37w 1d 166 lb 4 oz (+22 lb 4 oz) 118/70 Negative 1000 g/dL 135 37 Cephalic 0 SM- no vb lof good fm no regular ctx discussed delivery by 41 weeks 09/12/19 38w 1d 166 lb (+22 lb) 124/80 Negative Negative 135 38 Cephalic 0 SM- no vb lof good fm no regular ctx discussed RLTCS if not dilated 09/19/19 39w 1d 165 lb (+21 lb) 122/76 Negative Negative 150 39 Cephalic 0 GP - no LOF/VB/DFM/Ctx. Interested in TOLAC if dilated on Sunday, but otherwise plan RCD. ACOG First Trimester First Trimester: Discussed Diagnostics Diagnostics Diagnostics Gest Glucose Tolerance MG/DL 07/08/19 Glucose 1 Hr 50 gm 138 mg/dL (70-140) 07/02/19 Hgb 12.1 g/dL (12.0-15.0) 08/04/19 Hct 37.9 % (37-47) 08/04/19 Details: HIV: Urine Culture: Sequential Screen: NIPT Screen: ROS Const Reports fatigue, Reports increased appetite GI Denies constipation, Denies heartburn, Denies nausea, Denies vomiting Denies abnormal vaginal bleeding, Denies painful urination, Denies pelvic pain, Denies vaginal discharge Endo Reports fatigue Exam Const General: cooperative, healthy appearing, comfortable, no acute distress, well developed, well groomed HENMT Head: normal to inspection Resp Effort & Inspection: normal respiratory effort, able to speak in complete sentences, symmetric chest movement Cardio Rate: regular rate GI Palpation: soft, nontender, other (gravid) Extrem General: no pedal edema Psych Appearance: grossly normal, well kempt Mental Status: mental status grossly normal Mood: congruent mood Affect: normal affect Speech and Movement: speech and movement normal Attitude: cooperative Thought Process: normal Thought Content: normal Judgment: judgment good Results POC Urinalysis 2 Dip (Clinic) Office Urine Glucose Negative Last Edit by Cassi Cavanaugh on 09/19/19 10:15 Office Urine Protein Negative Last Edit by Cassi Cavanaugh on 09/19/19 10:15 Assessment & Plan Problems 1. Anxiety F41.9 2. Acquired hypothyroidism E03.9 3. H/O section Z98.891 4. 39 weeks gestation of Z3A.39 5. Abnormal glucose affecting O99.810 6. Supervision of high-risk O09.90 PLAN rltcs After discussing the patient's diagnosis and treatment plan options, patient wishes to proceed with surgical management. I have discussed with the patient the risks, benefits, and alternatives of the procedure which include but are not limited to risks of anesthesia, bleeding, infection, possible damage to bowel, bladder, or surrounding vasculature which could lead to additional surgery to evaluate any complications. Patient agrees to procedure and wishes to proceed. Coding Level of Care Code OB Routine Diagnoses Anxiety F41.9 Acquired hypothyroidism E03.9 ??Hypothyroidism type: acquired H/O section Z98.891 39 weeks gestation of Z3A.39 ??Weeks of gestation: 39 weeks Abnormal glucose affecting O99.810 Supervision of high-risk O09.90 .HP
[2019-09-22] MEDS: Cefazolin 2 GM in 0.9% Normal Saline 100 ML IV (07:24)
--- NOTE | 2019-09-22 07:26 | PCM.OPRPT ---
Problem List (1) Abnormal glucose affecting Status: Acute Comment: 3gtt nl (2) History of Status: Acute Comment: plan RLTCS due to cervix closed 08/20/2017. Desires 79% chance of success. handouts given. consent signed (3) Status: Acute Qualifiers: Comment: genetic testing- low risk, neg carrier screening in past. declined ntd screening. growth US normal (4) Supervision of high-risk Status: Acute Comment: PRR DIO 09-25-19 boy Efrain PC Shellie Spouse [employer] (5) Anxiety Status: Chronic Comment: Zoloft 50mg- denies depression, counseling encouraged (6) Hypothyroidism Status: Chronic Qualifiers: Comment: tested 1, 2, and 3rd TM. 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 Spinal anesthesia was placed without difficulty. Hussein catheter was placed. The patient was placed in the dorsal supine position with leftward tilt. Patient was prepped and draped in the normal sterile fashion. Pfannenstiel skin incision was made with the scalpel and carried through to the underlying layer of fascia with the scalpel. Fascia was nicked in the midline and the incision extended laterally. The rectus bellies were dissected off superiorly and inferiorly with out complication both sharply and bluntly. The peritoneum was entered digitally. The incision was stretched and a low transverse uterine incision was made with the scalpel. The 's head was delivered atraumatically followed by the anterior and posterior shoulders without complication the rest of the delivered. The cord was clamped and cut and the infant was handed off to awaiting nurse. The placenta was delivered spontaneously immediately following and was noted to be intact and have a three-vessel cord. The uterus was exteriorized cleared of all clots and debris, and the incision was closed in a double layer closure using #1 Monocryl. The ovaries and fallopian tubes were noted to be within normal limits. The uterus was returned to the maternal abdomen and gutters were cleared of all clots and debris. The peritoneum was closed with 3-0 Monocryl in a running fashion. Gloves were changed prior to fascial closure. Fascia was closed with 0 PDS in a running fashion. Subcutaneous tissue was copiously irrigated and the skin was closed with 3-0 Monocryl in a subcuticular fashion. Mepilex dressing was applied without complication. Patient was taken to recovery in stable condition. It was discussed with the patient that based on the clinical information obtained during this encounter, combined with her history, at this time I would recommend or vaginal for future deliveries if further pregnancies are desired. Amniotic Membrane Rupture Type: Artificial Amniotic Fluid Description: Clear Placenta Disposition: [facility] Drain: Hussein to straight drain Cord Entanglement: None Esitmated Blood Loss (ml): 700 Infant Gender: Male Delayed cord clamping: Yes Antibiotic Given: Ancef 2 grams IV x1 - PCN allergy but previously given ancef without complication Pt instructed on risks of surgery: Bleeding, Anesthesia Risks, Infection, Injury to surrounding structure(s) including bowel and bladder Complications: None - Admit VTE Documentation VTE Present on Admission: No VTE Mechan Device Prophylaxis: SCD's Multi Select Codes - Urinary/Genital Urinary/Genital CPT Codes: 36232 Delivery [facility]
--- NOTE | 2019-09-22 07:37 | PCM.DCCSEC ---
Discharge Diet: No Restrictions Discharge Activity: May Not Drive - for 2 weeks, May not drive while taking narcotic pain medications., May Shower, May Take a Tub Bath - in 7 days May resume sexual activity in: 4-6 weeks Lifting Restrictions: 20 pounds Additional Activity Instructions:: Nothing in the vagina for 4-6 weeks. You may return to work/school in 6 weeks. Call your doctor if your incision/area has: Continuous Slow Oozing, Sudden Increased Bleeding, Increased Pain/ Swelling, Increased Redness, Foul Smelling Discharge Call your doctor if you observe: Fever of 101 or Higher, Using more than one pad per hour - for 2 hours Suture Line Care: Avoid Pulling/Pushing, Avoid Pinching/Bending Cleanse incision/area with: Keep Dressing Clean & Dry Additional Instructions: If you experience any of the following, contact your healthcare provider. Bleeding that soaks a pad every hour for 2 hours Fever 100.4 or higher Unrelieved incision or abdominal pain Swelling, redness, discharge or bleeding from your incision or episiotomy site Your incision begins to separate Problems urinating (including inability to urinate or burning while urinating). Visual changes Severe headache Flu-like symptoms Pain or redness in one of both of your breasts Pain, warmth, tenderness or swelling in your legs, especially the calf area Frequent nausea and vomiting Symptoms of depression or anxiety If you experience any of the following, call 911 or go to the nearest Emergency Room. Chest pain Problems breathing Seizure activity Partial or complete paralysis of a body part, slurred speech, weakness or drooping of the face, or a sudden inability to walk or hold your balance Allergies/Adverse Reactions: Allergies Penicillins [PCN] Allergy (Verified 09/19/19 10:12) Unknown tramadol Adverse Reaction (Verified 09/19/19 10:12) Chest tightness Medications to take at Discharge Pnv No.95/Ferrous Fum/Folic AC [ Formula Tablet] 1 ea PO DAILY 09/01/15 sertraline 100 mg tablet 100 mg PO DAILY #90 tab 11/18/18 Levothyroxine Sodium [Synthroid] 50 mcg PO DAILY 09/22/19 Naproxen [Naprosyn] 250 - 500 mg PO Q8H PRN PRN #30 tab 09/22/19 Oxycodone HCl/Acetaminophen [Percocet 5-325] 1 - 2 tablet PO Q6H PRN PRN 7 Days #15 tablet 09/22/19 The following prescriptions were given: Naproxen [Naprosyn] 250 - 500 mg PO Q8H PRN PRN #30 tab PRN Reason: MILD PAIN Transmission Status: Pending to [facility] Oxycodone HCl/Acetaminophen [Percocet 5-325] 1 - 2 tablet PO Q6H PRN PRN 7 Days #15 tablet PRN Reason: Pain Transmission Status: Sent to [facility] Follow-Up: Call to make an appointment with your doctor for an incision check in 1-2 weeks. You will also need a 6 week post- follow up appointment. Test results from this visit will be discussed in further detail at your follow-up appointment, if applicable. Please Follow Up With: Marva Anderson MD - Call to make an appointment for an incision check in 1-2 [phone] When: You will need a post- check in 6 weeks. Primary Care Physician: Francesca Uribe MD [Primary Care Provider] -
[2019-09-22] MEDS: Oxytocin 30 units/NS 500 ml 30 UNITS/500 ML IV.SOLN 167 UNITS IV (08:35)
[2019-09-22] MEDS: Senna/Docusate Sodium 1 Tablet PO (10:05)
[2019-09-22] MEDS: Prenatal Vits Tablet 1 TABLET PO (10:05)
[2019-09-22] MEDS: Lactated Ringers 1,000 ML 100 ML IV (11:53)
[2019-09-22] MEDS: Ketorolac 30 MG/ML Syringe IV ×2 (14:07→20:26)
[2019-09-22] MEDS: 0.9% Saline Lock 10 ML Syringe IV (20:27)
[2019-09-22] MEDS: Sertraline 100 MG Tablet PO (22:13)
[2019-09-22] MEDS: Levothyroxine 50 MCG Tablet PO (22:13)
[2019-09-23 01:06] VITALS: BP 101/52; PULSE 85; RESP 16; TEMP 36.8
[2019-09-23] MEDS: Acetaminophen 500 MG Tablet 1000 MG PO ×2 (01:07→07:10)
[2019-09-23] MEDS: 0.9% Saline Lock 10 ML Syringe IV ×2 (02:23→08:11)
[2019-09-23] MEDS: Ketorolac 30 MG/ML Syringe IV ×2 (02:24→08:10)
[2019-09-23 04:35] VITALS: BP 97/48; PULSE 90; RESP 16; TEMP 37.1
[2019-09-23 05:09] LABS: Hematocrit 36.1 % (37-47); Hemoglobin 11.9 g/dL (12.0-15.0); Mean Corpuscular Hgb 30.2 pg (27.0-32.0); Mean Corpuscular Volume 91.6 fL (81-99); Platelet Count 225 K/mm3 (150-450); RBC Distribution Width CV 16.2 % (11.6-14.6); RBC Distribution Width SD 54.4 fl (35.1-43.9); Red Blood Count 3.94 M/mm3 (4.2-5.4); White Blood Count 13.4 K/mm3 (4.4-11.0)
--- NOTE | 2019-09-23 07:57 | PCM.PN.OB ---
Subjective: Doing well, no complaints.Pain controlled. Denies CP, SOB, N,V. Ambulating well, tolerating po. Lochia moderate, going well. - Physical Exam Vitals/I&O's: Vital Signs Temp Pulse Resp BP Pulse Ox 98.8 F 90 16 97/48 L 99 09/23/19 04:35 09/23/19 04:35 09/23/19 04:35 09/23/19 04:35 09/22/19 20:10 Oxygen Delivery Method Room Air Weight: 166 lb Body Mass Index (BMI) 29.4 Intake and Output for Last 24 Hours 09/21/19 09/22/19 09/23/19 23:59 23:59 23:59 Intake Total 2391.67 / 2391.67 Output Total 925 / 925 Balance 1466.67 / 1466.67 General: Alert, Oriented x3 Abdomen: Soft, Non-Distended, - - FF below U. Dressing dry and intact Laboratory Results 09/23/19 05:00: WBC 13.4 H, RBC 3.94 L, Hgb 11.9 L, Hct 36.1 L, MCV 91.6, MCH 30.2, MCHC 33.0, RDW Std Deviation 54.4 H, RDW Coeff of Casandra 16.2 H, Plt Count 225, MPV 11.0 Current Medications Acetaminophen (Tylenol) 1,000 mg PO Q6 CHALINO Last Admin: 09/23/19 07:10 Dose: 1,000 mg Documented by: Bisacodyl (Dulcolax) 10 mg RECTAL UD PRN PRN Reason: If no BM Diphenhydramine HCl (Benadryl) 25 mg PO Q6H PRN PRN PRN Reason: ITCHING Stop: 09/23/19 10:17 Hydrocortisone (Hytone) 1 applic TOPICAL TID PRN PRN; Protocol PRN Reason: Discomfort Naloxone HCl 4 mg/ Dextrose 504 mls @ 0 mls/hr IV .Q0M PRN; Protocol PRN Reason: Respiratory depression Naloxone HCl 4 mg/ Dextrose 504 mls @ 0 mls/hr IV .Q0M PRN; Protocol PRN Reason: To maintain Resp. rate >10 Ketorolac Tromethamine (Toradol (Bkc)) 30 mg IV Q6H CHALINO Stop: 09/23/19 08:01 Last Admin: 09/23/19 02:24 Dose: 30 mg Documented by: Levothyroxine Sodium (Synthroid) 50 mcg PO DAILY@2200 [facility] Last Admin: 09/22/19 22:13 Dose: 50 mcg Documented by: Methylergonovine Maleate (Methergine) 0.2 mg IM X1 PRN PRN Reason: Uterine Atony Naloxone HCl (Narcan) 0.02 mg IV Q1M PRN PRN Reason: RR <10 and pt unresponsive Naloxone HCl (Narcan) 0.02 mg IV Q1M PRN PRN Reason: RR< 10 AND PT UNRESPONSIVE Naproxen (Naprosyn) 500 mg PO Q8 [facility] Ondansetron HCl (Zofran) 4 mg IV Q4H PRN PRN PRN Reason: Nausea Oxycodone HCl (Oxyir) 5 - 10 mg PO Q4H PRN PRN PRN Reason: Pain Score 4-10/10 Multivit/Folic Acid/Iron (Prenatabs Fa) 1 tablet PO DAILY@1200 [facility] Last Admin: 09/22/19 10:05 Dose: 1 tablet Documented by: Prochlorperazine Edisylate (Compazine Iv) 10 mg IV Q6H PRN PRN PRN Reason: NAUSEA Senna/Docusate Sodium (Senokot-S, Tara-Colace) 0 tablet PO DAILY [facility] Last Admin: 09/22/19 10:05 Dose: 2 tablet Documented by: Sertraline HCl (Zoloft) 100 mg PO DAILY@2200 [facility] Last Admin: 09/22/19 22:13 Dose: 50 mg Documented by: Simethicone (Mylicon) 80 mg PO PCHS PRN PRN Reason: Indigestion/stomach pain Sodium Chloride () 5 - 15 ml IV UD PRN PRN Reason: SALINE FLUSH Last Admin: 09/23/19 02:23 Dose: 10 ml Documented by: Medical Necessity - Tobacco Use Smoking Status: Never smoker Assessment/Plan All Active Problems (Last Reviewed 09/19/19 @ 10:12 by Cassi Cavanaugh) Supervision of high-risk (Acute) Abnormal glucose affecting (Acute) (Acute) History of (Acute) Anemia affecting (Resolved) Breast lump (Resolved) Generalized anxiety disorder (Resolved) History of PCOS (Resolved) Hyperthyroidism (Resolved) Segmental and somatic dysfunction of cervical region (Resolved) Segmental and somatic dysfunction of thoracic region (Resolved) Supervision of normal (Resolved) s/p LTCS PPD # 1 1. routine post care 2. breast feeding- support given 3. rh positive 4. rubella immune 5. home today
[2019-09-23 08:15] VITALS: BP 96/50; PULSE 82; RESP 18; TEMP 36.6
[2019-09-23] MEDS: Prenatal Vits Tablet 1 TABLET PO (10:37)
[2019-09-23] MEDS: Senna/Docusate Sodium 1 Tablet PO (10:37)
== END 2019-09-23 13:50 | disposition home or self-care (01) | DRG 788 ==
PROVIDERS: Admitting Provider Obstetrics & Gynecology; PCP Internal Medicine; Referring Provider Obstetrics & Gynecology; Visit Provider Obstetrics & Gynecology
PROC: 10D00Z1 Extraction of Products of Conception, Low, Open Approach (ICD-10-PCS; CPT 59514; principal; 2019-09-22 07:15)
DX: O99.284 Endocrine, nutritional and metabolic diseases complicating childbirth (principal); E03.9 Hypothyroidism, unspecified; Z3A.39 39 weeks gestation of pregnancy; Z37.0 Single live birth
CPT/HCPCS: 85025; 85027; 86850; 86900; 86901; 94762; 99218; 99251; J7120; A4216; G0378; G0463; J2405

== ENCOUNTER → 2019-10-02 | Outpatient (CLI) | payer OTHER, SELFPAY ==
[2019-10-02 09:50] VITALS: BMI 29.4
== END | disposition home or self-care (01) ==
LOC: LABSPEC 12:48
PROVIDERS: PCP Internal Medicine; Referring Provider Obstetrics & Gynecology; Visit Provider Obstetrics & Gynecology
DX: T14.8XXA Other injury of unspecified body region, initial encounter (principal)
CPT/HCPCS: 87070; 87077; 87186; 87205

== ENCOUNTER → 2020-02-19 12:43 | Outpatient (CLI) | payer OTHER, SELFPAY ==
[2020-02-18 16:53] VITALS: BMI 26.5
[2020-02-19 14:21] LABS: Thyroid Stim Hormone (TSH) 1.66 uIU/mL (0.358-3.74)
== END ==
PROVIDERS: PCP Internal Medicine; Referring Provider Nurse Practitioner Family; Visit Provider Nurse Practitioner Family
DX: E03.9 Hypothyroidism, unspecified (principal)
CPT/HCPCS: 36415; 84443

== ENCOUNTER → 2020-03-17 07:32 | Outpatient (CLI) | payer OTHER, SELFPAY ==
[2020-02-18 16:53] VITALS: BMI 26.5
[2020-03-17 08:56] LABS: Vitamin D,25 Hydroxy 31.1 ng/mL
[2020-03-17 08:57] LABS: Cholesterol 209 mg/dL (200); High Density Lipoprotein 79 mg/dL; Triglycerides 58 mg/dL; Very Low Density Lipoprotein 12 mg/dL (5-40)
== END ==
PROVIDERS: PCP Internal Medicine; Referring Provider Nurse Practitioner Family; Visit Provider Nurse Practitioner Family
DX: E55.9 Vitamin D deficiency, unspecified (principal); Z13.220 Encounter for screening for lipoid disorders
CPT/HCPCS: 36415; 80061; 82306

== ENCOUNTER 2021-02-05 20:42 | Emergency (ER) | payer OTHER, SELFPAY ==
[2021-02-05 20:43] VITALS: BP 121/68; PULSE 112; RESP 18; TEMP 36.3; O2SAT 98; BMI 25.0
--- NOTE | 2021-02-05 20:57 | EKG12_ITS ---
Test Reason : PALPITATIONS Blood Pressure : / mmHG Vent. Rate : 112 BPM Atrial Rate : 112 BPM P-R Int : 148 ms QRS Dur : 082 ms QT Int : 338 ms P-R-T Axes : 073 045 028 degrees QTc Int : 461 ms Sinus tachycardia Otherwise normal ECG Confirmed by MARQUIS ZAVALA, FRANCISCO ([id number]), electronic news gathering editor STEVEN MINER ([id number]) on 02/09/2021 10:09:33 AM Referred By: TANYA Confirmed By:FRANCISCO CHO MD
--- NOTE | 2021-02-05 20:59 | EDS_ITS ---
HPI History of Present Illness Chief Complaint: Palpitations Informant: patient Narrative Narrative: Patient states she was sitting at home when she suddenly got palpitations, nausea, anxiety. She just feels as though she cannot calm down. She is not coughing. She is not short of breath. She is not having chest pain. She has no recent long travel surgery immobilization personal or family history of DVT. No history of heart disease. She does have a history of anxiety and panic attacks. She has these quite rarely and has not had one for a while. This does seem similar but she does not know why it would occur right now. She is on Zoloft. She is also on Synthroid and last had her levels checked about 6 months ago. She had some nausea vomiting diarrhea last week. No pulmonary symptoms. She was checked for Covid and it was negative. [facility] Medical History Anxiety Anxiety Breast lump Gave to child recently Headaches, cluster Hyperthyroidism Hypothyroidism Polycystic disease, ovaries Seasonal allergies UTI (urinary tract infection) Home Medications levothyroxine 50 mcg tablet 50 mcg PO DAILY #90 tab 09/27/20 [Rx Last Taken Unknown] sertraline 50 mg tablet 50 mg PO DAILY #90 tab 09/27/20 [Rx Last Taken Unknown] hydroxyzine pamoate 50 mg PO TID PRN #14 cap 02/06/21 [Rx Last Taken Unknown] Allergy/AdvReac Type Severity Reaction Status Date / Time Penicillins [PCN] Allergy Unknown Verified 08/17/20 16:44 tramadol AdvReac Chest Verified 08/17/20 16:44 tightness Family History Mother Anxiety Hormonal disorder Grandmother Anxiety Heart disease Father Asthma Brother Depression Psychiatric care Grandfather Diabetes Hypertension Grandmother Thyroid disorder Other Cancer Surgical History History of History of Social History adopted: No household members: family housing: house number of children: 1 current occupational status: employed current occupation: [employer] current occupational exposures/hazards: No pets and animals: Yes history of recent travel: No sexually active: Yes Smoking Status: Never smoker second hand exposure: No alcohol intake: current alcohol intake frequency: holidays/special occasions only details: not while substance use type: does not use caffeine: Yes what type of physical activity do you participate in: aerobics frequency: 1-2 times per week seatbelt use: always do you feel safe at home: Yes 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[employer] [facility] ROS ED Constitutional Constitutional ED: Denies chills or fever(s) Eyes Eyes: Denies blurry vision or change in vision ENT ENT ED: Denies rhinorrhea or sore throat Cardiovascular Cardiovascular: Reports palpitations; Denies chest pain Respiratory/Chest Respiratory/Chest: Denies cough, dyspnea or sputum Gastrointestinal Gastrointestinal: Reports nausea; Denies abdominal pain, diarrhea or vomiting Genitourinary Genitourinary ED: Denies dysuria Musculoskeletal Musculoskeletal: Denies myalgias Integumentary Denies rash Neurologic Neurologic: Denies headache(s) Psychiatric Psychiatric: Reports anxiety Endocrine Endocrinology: Denies polydipsia or polyuria Allergic/Immunologic Allergic/Immunologic ED: Denies mouth swelling or urticaria EXAM Physical Exam Const Vital Signs: 02/05/21 20:43 02/05/21 20:47 Temperature 97.3 F L Temperature Source Temporal Pulse Rate 112 H Respiratory Rate 18 Respiratory Effort Normal Non-Labored Blood Pressure 121/68 H Blood Pressure Mean 85 Pulse Ox 98 Oxygen Delivery Method Room Air Patient is mildly tachycardic but she looks comfortable. Breathing is not lab ored. She is somewhat curled up into a ball to get warmer comfortable. She admits to feeling just kind of anxious and cannot feel like she can calm down Positive well nourished and well developed General Appearance ED: well developed; Negative for cyanotic or diaphoretic HEENT Reports moist mucous membranes Negative for trauma or tenderness Eyes PERRL and EOMs intact bilaterally General Eye ED: Negative for pale conjunctiva or scleral icterus Neck no JVD Chest Wall inspection of chest normal Resp normal respiratory effort and clear to auscultation bilaterally Resp Narrative: No pain with a deep breath. Lungs are completely clear. Effort and Inspection: Negative for pain with movement Auscultation: Negative for rales, rhonchi or wheezes Cardio regular rhythm Rate: tachycardic and other Other Details: Heart rate is about 100-110. It is regular. No ectopy. GI normal to inspection, nondistended, normoactive bowel sounds and non-tender Palpation: soft Back/Spine no CVA tenderness Extremity normal to inspection General Extremety ED: Negative for edema or tenderness General Extremity: Negative for edema Neuro oriented x3 Sensorium / Orientation: alert Psych Attitude: No agitated Mood & Affect: anxious; Negative for depressed or tearful Skin no rashes or lesions noted MDM MDM MDM Narrative Medical decision making narrative: Patient's EKG shows no acute process other than mild tachycardia. X-ray is normal. Patient was given a dose of Ativan. She is calm down. She feels more relaxed now. Heart rate is down about 95. . Patient is on Zoloft for this. She does not have anything for breakthrough episodes. She had palpitations and anxiety but did not have chest pain or dyspnea. She was not tachypneic and she was not hypoxic. No pleuritic pain. No hemoptysis. No leg pain or swelling. No risk factors for DVT or PE. We discussed doing labs including D-dimer. However, she really does not have symptoms of a PE and I would prefer not to put her at risk of CT if we do not have to. She agrees with this. Plan will be to get her home with Vistaril. Patient also thinks some of this is due to being a bit dehydrated because she had the nausea vomiting diarrhea last week. Stress of the holidays may also contribute to this although she does not feel particularly stressed by those. We discussed reasons to return and follow-up. Radiography Diagnostic Testing: Clinical Impression(s) from Imaging Studies Chest X-Ray 02/05/21 21:00 IMPRESSION: Nonacute portable x-ray examination of the chest. Electronically Signed: Carlton Gaspar MD (Brooks) at 21:26 EST , Service support , EKG Initial EKG: Comments: EKG done for palpitations read by me shows sinus rhythm with mildly tachycardic rate at 112. No ectopy. No acute ST elevation or depression. GA interval, QRS duration and QTc normal. This is very similar to 2018-10-02. Discharge Plan Triage Chief Complaint: Palpitations ED Provider: Listerman,Peter Dx/Rx/DC Orders Clinical Impression: Heart palpitations, Panic attack Instructions: ED Anxiety Reaction, ED Palpitations Prescriptions: New hydroxyzine pamoate 50 mg capsule 50 mg PO TID PRN (Reason: anxiety) Qty: 14 RF: 0 No Action levothyroxine 50 mcg tablet 50 mcg PO DAILY Qty: 90 RF: 1 sertraline [Zoloft] 50 mg tablet 50 mg PO DAILY Qty: 90 RF: 1 Primary Care Provider: Francesca Uribe Referrals: Francesca Uribe MD [Primary Care Provider] - 3-5 Days Disposition Disposition: Home, Self Care Discharge Date/Time: 02/05/21 23:04
--- NOTE | 2021-02-05 21:00 | RAD_ITS ---
STUDY: X-RAY CHEST REASON FOR EXAM: Female, 30 years old. palpitations TECHNIQUE: AP COMPARISON: 06/21/2015 FINDINGS: EKG leads project over the chest. The lungs are clear and expanded. There is no demonstrated pleural abnormality. Normal size heart. Normal mediastinum and sarah beth. Normal visualized pulmonary arteries. Normal visualized aortic arch and descending thoracic aorta. Normal visualized thoracic spine. Normal visualized ribs, clavicles, and shoulders. There is no demonstrated abnormality of the visualized soft tissue structures of the upper abdomen. RAD/Chest 1 View (Portable) IMPRESSION: Nonacute portable x-ray examination of the chest. Electronically Signed: Carlton Gaspar MD (Brooks) at 21:26 EST , Service support ,
[2021-02-05] MEDS: LORazepam 2 MG/ML Syringe 1 MG IV (21:33)
[2021-02-05] MEDS: 0.9% Normal Saline 1,000 ML 999 ML IV (22:11)
[2021-02-05 23:02] VITALS: BP 116/66; PULSE 106; RESP 16; O2SAT 98
== END 2021-02-05 23:04 | disposition home or self-care (01) ==
PROVIDERS: Emergency Provider Emergency Medicine; PCP Internal Medicine
DX: R00.2 Palpitations (principal); F41.0 Panic disorder [episodic paroxysmal anxiety]; E03.9 Hypothyroidism, unspecified; Z79.899 Other long term (current) drug therapy
CPT/HCPCS: 71045; 93005; 96374; 99284; A4216

== ENCOUNTER → 2021-02-07 | Outpatient (CLI) | payer OTHER, SELFPAY ==
[2021-02-07 12:38] LABS: Absolute Lymphocyte Count 1.72 X10^3/uL (0.83-4.51); Absolute Neutrophil Count 5.4 X10^3/uL (2.0-7.7); Basophil# 0.03 X10^3/uL; Basophil% 0.4 % (0-1); Eosinophil# 0.17 X10^3/uL; Eosinophils% 2.2 % (0-5); Hematocrit 43.1 % (37-47); Hemoglobin 14.3 g/dL (12.0-15.0); Lymphocyte # 1.72 X10^3/ul (0.83-4.51); Lymphocyte % 22.1 % (19-41); Mean Corp Hgb Conc 33.2 g/dL (32-36); Mean Corpuscular Volume 90.5 fL (81-99); Mean Platelet Vol. 10.2 fl (6.2-12.0); Monocyte# 0.43 X10^3/uL; Monocyte% 5.5 % (0-10); NRBC Flagged by Analyzer 0 % (0-5); Neutrophil # 5.41 X10^3/uL (2.7-7.7); Neutrophil % 69.5 % (47-70); Platelet Count 425 K/mm3 (150-450); RBC Distribution Width CV 13.2 % (11.6-14.6); RBC Distribution Width SD 43.8 fl (35.1-43.9); Red Blood Count 4.76 M/mm3 (4.2-5.4); White Blood Count 7.8 K/mm3 (4.4-11.0)
[2021-02-07 13:20] LABS: Anion Gap 6 (5-15); BUN 9 mg/dL (7-18); BUN/Creat Ratio 11.7 RATIO (10-20); Calcium,Total 9.1 mg/dL (8.5-10.1); Chloride 105 mmol/L (98-107); Creatinine, Serum 0.77 mg/dL (0.55-1.02); EST Glomerular Filtration Rate 95 mL/min (>60); Est Glom Filt Rate - Afr Amer 115 mL/min (>60); Glucose 90 mg/dL (74-106); Magnesium 2.6 mg/dL (1.6-2.6); Sodium Level 138 mmol/L (136-145); Thyroid Stim Hormone (TSH) 1.99 uIU/mL (0.358-3.74)
== END | disposition short-term general hospital (02) ==
LOC: LAB 11:37
PROVIDERS: PCP Internal Medicine; Referring Provider Internal Medicine Cardiovascular Disease; Visit Provider Internal Medicine Cardiovascular Disease
DX: R00.2 Palpitations (principal)
CPT/HCPCS: 36415; 80048; 83735; 84443; 85025

== ENCOUNTER → 2021-07-23 | Outpatient (CLI) | payer OTHER, SELFPAY ==
[2021-07-23 09:52] LABS: Absolute Lymphocyte Count 1.17 X10^3/uL (0.83-4.51); Basophil# 0.05 X10^3/uL; Basophil% 0.9 % (0-1); Eosinophils% 3.4 % (0-5); Hematocrit 41.6 % (37-47); Hemoglobin 13.8 g/dL (12.0-15.0); Lymphocyte # 1.17 X10^3/ul (0.83-4.51); Lymphocyte % 20.1 % (19-41); Mean Corp Hgb Conc 33.2 g/dL (32-36); Mean Corpuscular Hgb 30.4 pg (27.0-32.0); Mean Corpuscular Volume 91.6 fL (81-99); Mean Platelet Vol. 10.4 fl (6.2-12.0); Monocyte# 0.38 X10^3/uL; Monocyte% 6.5 % (0-10); NRBC Flagged by Analyzer 0 % (0-5); Neutrophil # 4.01 X10^3/uL (2.7-7.7); Neutrophil % 68.8 % (47-70); Platelet Count 360 K/mm3 (150-450); RBC Distribution Width CV 12.9 % (11.6-14.6); RBC Distribution Width SD 43.7 fl (35.1-43.9); Red Blood Count 4.54 M/mm3 (4.2-5.4); White Blood Count 5.8 K/mm3 (4.4-11.0)
[2021-07-23 10:32] LABS: ALB/GLOB Ratio 0.9 RATIO (0.9-2.4); AST(SGOT) 15 U/L (15-37); Alanine Aminotransfer ALT/SGPT 20 U/L (13-56); Albumin, Serum 3.5 g/dL (3.2-5.0); Alkaline Phosphatase 72 U/L (45-117); Anion Gap 5 (5-15); BUN 9 mg/dL (7-18); BUN/Creat Ratio 10.7 RATIO (10-20); Calcium,Total 8.9 mg/dL (8.5-10.1); Chloride 106 mmol/L (98-107); Cholesterol 216 mg/dL (200); Creatinine, Serum 0.84 mg/dL (0.55-1.02); EST Glomerular Filtration Rate 85 mL/min (>60); Est Glom Filt Rate - Afr Amer 103 mL/min (>60); Globulin 3.8 g/dL (2.2-4.2); Glucose 84 mg/dL (74-106); High Density Lipoprotein 76 mg/dL; Potassium 4.1 mmol/L (3.5-5.1); Protein, Total 7.3 g/dL (6.4-8.2); Sodium Level 138 mmol/L (136-145); Thyroid Stim Hormone (TSH) 2.74 uIU/mL (0.358-3.74); Triglycerides 125 mg/dL; Very Low Density Lipoprotein 25 mg/dL (5-40)
[2021-07-25 08:01] LABS: Vitamin D,25 Hydroxy 38.3 ng/mL
== END | disposition home or self-care (01) ==
LOC: LAB 08:59
PROVIDERS: PCP Internal Medicine; Referring Provider Nurse Practitioner Family; Visit Provider Nurse Practitioner Family
DX: F41.9 Anxiety disorder, unspecified (principal); E03.9 Hypothyroidism, unspecified; E56.9 Vitamin deficiency, unspecified
CPT/HCPCS: 36415; 80053; 80061; 82306; 84443; 85025

== ENCOUNTER → 2021-12-07 | Outpatient (CLI) | payer MEDICAID, SELFPAY ==
[2021-12-16 14:52] LABS: HPV Reflexed? NOT INDICATED
== END | disposition home or self-care (01) ==
PROVIDERS: PCP Internal Medicine; Visit Provider Obstetrics & Gynecology
DX: Z12.4 Encounter for screening for malignant neoplasm of cervix (principal)
CPT/HCPCS: 88175; G0145

== ENCOUNTER → 2022-01-16 | Outpatient (CLI) | payer MEDICAID, SELFPAY ==
[2022-01-16 11:35] LABS: hCG Titer Quant., Serum 122 mIU/mL (1-3)
== END | disposition home or self-care (01) ==
LOC: LAB 10:11
PROVIDERS: PCP Internal Medicine; Referring Provider Obstetrics & Gynecology; Visit Provider Obstetrics & Gynecology
DX: N91.2 Amenorrhea, unspecified (principal)
CPT/HCPCS: 36415; 84702

== ENCOUNTER → 2022-01-18 | Outpatient (CLI) | payer MEDICAID, SELFPAY ==
[2022-01-18 11:20] LABS: hCG Titer Quant., Serum 354 mIU/mL (1-3)
== END | disposition home or self-care (01) ==
LOC: LAB 10:29
PROVIDERS: PCP Internal Medicine; Referring Provider Obstetrics & Gynecology; Visit Provider Obstetrics & Gynecology
DX: O36.80X0 Pregnancy with inconclusive fetal viability, not applicable or unspecified (principal)
CPT/HCPCS: 36415; 84702

== ENCOUNTER → 2022-02-13 | Outpatient (CLI) | payer MEDICAID, SELFPAY ==
[2022-02-15 00:06] LABS: Chlamydia By Nucleic Acid AMP Negative (Negative)
[2022-02-15 16:55] LABS: Gonococcus By Nucleic Acid AMP Negative (Negative)
== END | disposition home or self-care (01) ==
LOC: LABSPEC 12:36
PROVIDERS: PCP Internal Medicine; Referring Provider Obstetrics & Gynecology; Visit Provider Obstetrics & Gynecology
DX: Z34.90 Encounter for supervision of normal pregnancy, unspecified, unspecified trimester (principal)
CPT/HCPCS: 87086; 87088; 87491; 87591

== ENCOUNTER → 2022-02-27 | Outpatient (CLI) | payer MEDICAID, SELFPAY ==
[2022-02-27 10:24] LABS: Absolute Lymphocyte Count 1.26 X10^3/uL (0.83-4.51); Absolute Neutrophil Count 8.5 X10^3/uL (2.0-7.7); Basophil# 0.04 X10^3/uL; Basophil% 0.4 % (0-1); Eosinophil# 0.26 X10^3/uL; Eosinophils% 2.4 % (0-5); Hematocrit 40.1 % (37-47); Hemoglobin 13.3 g/dL (12.0-15.0); Lymphocyte # 1.26 X10^3/ul (0.83-4.51); Lymphocyte % 11.8 % (19-41); Mean Corp Hgb Conc 33.2 g/dL (32-36); Mean Corpuscular Hgb 29.8 pg (27.0-32.0); Mean Corpuscular Volume 89.9 fL (81-99); Mean Platelet Vol. 10.6 fl (6.2-12.0); Monocyte# 0.53 X10^3/uL; NRBC Flagged by Analyzer 0 % (0-5); Neutrophil # 8.51 X10^3/uL (2.7-7.7); Neutrophil % 79.7 % (47-70); Platelet Count 333 K/mm3 (150-450); RBC Distribution Width CV 14.3 % (11.6-14.6); RBC Distribution Width SD 46.8 fl (35.1-43.9); Red Blood Count 4.46 M/mm3 (4.2-5.4); White Blood Count 10.7 K/mm3 (4.4-11.0)
[2022-02-27 10:37] LABS: NATERA MAILED SPECIMEN
[2022-02-27 11:41] LABS: HIV - WCH Non-Reactive (Nonreactive); Hepatitis B Surface Antigen Non-Reactive (Nonreactive); Hepatitis C Antibody Non-Reactive (Nonreactive); Rubella IgG Reactive (Nonreactive); Syphilis Antibodies Non-reactive
== END | disposition home or self-care (01) ==
LOC: LAB 09:31
PROVIDERS: PCP Internal Medicine; Referring Provider Obstetrics & Gynecology; Visit Provider Obstetrics & Gynecology
DX: Z34.81 Encounter for supervision of other normal pregnancy, first trimester (principal)
CPT/HCPCS: 36415; 85025; 86703; 86762; 86780; 86803; 86850; 86900; 86901; 87340

== ENCOUNTER → 2022-04-12 | Outpatient (CLI) | payer MEDICAID, SELFPAY | END | disposition home or self-care (01) | LOC: LAB 09:38 | PROVIDERS: PCP Internal Medicine; Visit Provider Obstetrics & Gynecology | DX: E03.9 Hypothyroidism, unspecified (principal) | CPT/HCPCS: 36415; 84443 ==

== ENCOUNTER → 2022-06-17 | Outpatient (CLI) | payer MEDICAID, SELFPAY ==
[2022-06-17 10:43] LABS: Absolute Lymphocyte Count 1.33 X10^3/uL (0.83-4.51); Absolute Neutrophil Count 9.9 X10^3/uL (2.0-7.7); Basophil# 0.04 X10^3/uL; Basophil% 0.3 % (0-1); Eosinophil# 0.41 X10^3/uL; Eosinophils% 3.3 % (0-5); Hematocrit 33.4 % (37-47); Hemoglobin 10.9 g/dL (12.0-15.0); Lymphocyte # 1.33 X10^3/ul (0.83-4.51); Lymphocyte % 10.7 % (19-41); Mean Corp Hgb Conc 32.6 g/dL (32-36); Mean Corpuscular Hgb 29.8 pg (27.0-32.0); Mean Corpuscular Volume 91.3 fL (81-99); Mean Platelet Vol. 10.1 fl (6.2-12.0); Monocyte# 0.65 X10^3/uL; Monocyte% 5.2 % (0-10); NRBC Flagged by Analyzer 0 % (0-5); Neutrophil # 9.91 X10^3/uL (2.7-7.7); Neutrophil % 80.1 % (47-70); Platelet Count 329 K/mm3 (150-450); RBC Distribution Width CV 13.2 % (11.6-14.6); RBC Distribution Width SD 43.8 fl (35.1-43.9); Red Blood Count 3.66 M/mm3 (4.2-5.4); White Blood Count 12.4 K/mm3 (4.4-11.0)
[2022-06-17 11:14] LABS: Glucose Challenge Gest 1H 50g 159 mg/dL (70-140); T4 Free Direct 0.89 ng/dL (0.76-1.46)
[2022-06-19 09:34] LABS: HIV - WCH Non-Reactive (Nonreactive); Syphilis Antibodies Non-reactive
== END | disposition home or self-care (01) ==
PROVIDERS: PCP Internal Medicine; Referring Provider Obstetrics & Gynecology; Visit Provider Obstetrics & Gynecology
DX: O99.280 Endocrine, nutritional and metabolic diseases complicating pregnancy, unspecified trimester (principal); E03.9 Hypothyroidism, unspecified; Z3A.00 Weeks of gestation of pregnancy not specified
CPT/HCPCS: 36415; 82950; 84439; 84443; 85025; 86703; 86780

== ENCOUNTER → 2022-06-27 | Outpatient (CLI) | payer MEDICAID, SELFPAY ==
[2022-06-27 08:16] LABS: Glucose GTT-Gestation. Fasting 92 mg/dL (<105)
[2022-06-27 08:59] LABS: Glucose GTT-Gestational 1 Hr 158 mg/dL (<190)
[2022-06-27 10:09] LABS: Glucose GTT-Gestational 2 Hr 162 mg/dL (<165)
[2022-06-27 12:43] LABS: Glucose GTT-Gestational 3 Hr 146 L (<145)
== END | disposition home or self-care (01) ==
LOC: LAB 07:00
PROVIDERS: PCP Internal Medicine; Visit Provider Obstetrics & Gynecology
DX: Z13.1 Encounter for screening for diabetes mellitus (principal)
CPT/HCPCS: 36415; 82951; 82952

== ENCOUNTER 2022-07-12 07:56 | Outpatient (RCR) | payer MEDICAID, SELFPAY | END 2022-08-04 23:59 | LOC: DC 07:56 | PROVIDERS: PCP Internal Medicine; Referring Provider Nurse Practitioner Women's Health; Visit Provider Nurse Practitioner Women's Health | DX: O24.419 Gestational diabetes mellitus in pregnancy, unspecified control (principal); Z3A.00 Weeks of gestation of pregnancy not specified | CPT/HCPCS: 97802 ==

== ENCOUNTER → 2022-08-24 | Outpatient (CLI) | payer MEDICAID, SELFPAY ==
--- NOTE | 2022-08-24 16:25 | US_ITS ---
INDICATION: growth scan for diabetes mellitus COMPARISON: 08/15/2019 OB ultrasound. FINDINGS: 48 grayscale ultrasound images demonstrate single live intrauterine in cephalic presentation measuring at 35 weeks +6 days average ultrasound age. Estimated weight 3079 g, 79th percentile. heart rate 150 bpm. Adequate amniotic fluid volume with multiple large pockets visualize, GUILLE 14 cm. Anterior placenta is unremarkable for gestational age without evidence of placenta previa. Three-vessel CORD. Uterine myometrium is unremarkable. Uterine cervix is not well appreciated. Bilateral ovaries are not visualized. No significant free fluid. US/OB Limited With Biometrics IMPRESSION: Single live intrauterine in cephalic presentation measuring at 35 weeks +6 days average ultrasound age. Estimated weight 3079 g, 79th percentile. Electronically Signed: Jules Armstrong MD at 20:20 EDT ,
== END | disposition home or self-care (01) ==
LOC: US 16:24
PROVIDERS: PCP Internal Medicine; Referring Provider Obstetrics & Gynecology; Visit Provider Obstetrics & Gynecology
DX: O24.419 Gestational diabetes mellitus in pregnancy, unspecified control (principal); Z3A.00 Weeks of gestation of pregnancy not specified
CPT/HCPCS: 76816

== ENCOUNTER → 2022-08-28 | Outpatient (CLI) | payer MEDICAID, SELFPAY | END | disposition home or self-care (01) | LOC: LABSPEC 15:09 | PROVIDERS: PCP Internal Medicine; Referring Provider Advanced Practice Midwife; Visit Provider Advanced Practice Midwife | DX: O09.90 Supervision of high risk pregnancy, unspecified, unspecified trimester (principal); Z3A.00 Weeks of gestation of pregnancy not specified | CPT/HCPCS: 87081 ==

== ENCOUNTER 2022-09-15 05:13 | Inpatient (IN) | payer MEDICAID, SELFPAY ==
[2022-09-15] VITALS (16 sets, daily range): BP systolic 98–129; BP diastolic 46–74; PULSE 85–123; RESP 13–18; TEMP 36.2–37; O2SAT 96–100; BMI 27.8
[2022-09-15] MEDS: Lactated Ringers 1,000 ML 999 ML IV (05:30)
[2022-09-15 05:40] LABS: Absolute Lymphocyte Count 1.86 X10^3/uL (0.83-4.51); Absolute Neutrophil Count 8.7 X10^3/uL (2.0-7.7); Basophil# 0.06 X10^3/uL; Basophil% 0.5 % (0-1); Eosinophils% 1.7 % (0-5); Hemoglobin 9.4 g/dL (12.0-15.0); Lymphocyte # 1.86 X10^3/ul (0.83-4.51); Mean Corp Hgb Conc 30.3 g/dL (32-36); Mean Corpuscular Volume 79.1 fL (81-99); Mean Platelet Vol. 10.7 fl (6.2-12.0); Monocyte# 0.81 X10^3/uL; NRBC Flagged by Analyzer 0 % (0-5); Neutrophil # 8.66 X10^3/uL (2.7-7.7); Neutrophil % 74.5 % (47-70); Platelet Count 362 K/mm3 (150-450); RBC Distribution Width CV 14.9 % (11.6-14.6); RBC Distribution Width SD 43.1 fl (35.1-43.9); Red Blood Count 3.92 M/mm3 (4.2-5.4); White Blood Count 11.6 K/mm3 (4.4-11.0)
[2022-09-15 05:57] LABS: Bedside Glucose 144 mg/dL (74-106)
--- NOTE | 2022-09-15 06:11 | NURSING ---
0500 called for c/s orders. updated pt with pcn allergy-rash in childhood. new orders received for 2 g IV ancef 0540 BGT 144, pt drsunny ensure on way into unit. updated. new order to recheck in at 0640 and notify provider if BGT is over 140
[2022-09-15] MEDS: Acetaminophen 500 MG Tablet 1000 MG PO ×3 (06:32→18:41)
[2022-09-15] MEDS: Lactated Ringers 1,000 ML 150 ML IV (06:33)
[2022-09-15 06:52] LABS: Bedside Glucose 125 mg/dL (74-106)
[2022-09-15] MEDS: Sodium Citrate/Citric Acid 30 ML UDC PO (07:22)
--- NOTE | 2022-09-15 07:32 | HP.PCM_ITS ---
History and Physical [facility] [address] [place] [address] OFFICE VISIT Date of Service: 09/08/22 MR#: [id number] Acct: [id number] Name: SHERYL ALFORD Rep #: [id number] : 1990 Provider: Dr. Marva Anderson MD Age/Sex: 31/F Location: [facility] Status: Signed Intake Vital Signs 08/14/2310:16 08/28/2312:04 09/08/2308:19 09/08/2308:21 Height 5 ft 3 in 5 ft 3 in 5 ft 3 in 5 ft 3 in Weight: 162 lb 2 oz BMI 28.7 BP 120/70 Intake Visit Reasons: 37 WK OB Hair Mixer Required: No Is patient in pain?: No Allergies Penicillins [PCN] Allergy (Verified 09/08/22 09:20) Unknowntramadol Adverse Reaction (Verified 09/08/22 09:20) Chest tightness Medications ondansetron 4 mg disintegrating tablet 4 mg PO Q4H PRN nausea and vomiting #60 tabs 01/31/22 [Rx Confirmed 09/08/22] PNV 153-FA 400 mcg-om3 35 mg-dha 25 mg-epa 5 mg-fish oil chew tablet tab PO 02/07/22 [History Confirmed 09/08/22] hydroxyzine pamoate 50 mg capsule (Vistaril) 50 mg PO TID-QID PRN anxiety #60 caps 02/13/22 [Rx Confirmed 09/08/22] sertraline 50 mg tablet (Zoloft) 50 mg PO BID #180 tabs 02/13/22 [Rx Confirmed 09/08/22] blood sugar diagnostic (Blood Glucose Test strips) #50 ea 06/28/22 [Rx Confirmed 09/08/22] blood-glucose meter #1 ea 06/28/22 [Rx Confirmed 09/08/22] lancets #100 ea 06/28/22 [Rx Confirmed 09/08/22] levothyroxine 50 mcg tablet 50 mcg PO DAILY hypothyroidism #90 tabs 07/21/22 [Rx Confirmed 09/08/22] Last Menstrual Period: 12/08/21 Zika: Zika virus screening: Negative : No PFSH PFSH Medical History Anxiety Anxiety Breast lump Gave to child recently Headaches, cluster History of infertility Hyperthyroidism Hypothyroidism Polycystic disease, ovaries Seasonal allergies UTI (urinary tract infection) Surgical History History of History of Family History Mother Anxiety Hormonal disorder Stillborn, normalGrandmother Anxiety Heart diseaseFather AsthmaBrother Depression Psychiatric careGrandfather Diabetes HypertensionGrandmother Thyroid disorderOther Cancer Social History adopted: No household members: spouse and children housing: house number of children: 2 current occupational status: unemployed current occupational exposures/hazards: No pets and animals: Yes (not managing litterbox ) pets and animals: cat(s) history of recent travel: No sexually active: Yes Smoking Status: Never smoker second hand exposure: No alcohol intake: current alcohol intake frequency: holidays/special occasions only details: not while substance use type: does not use well-balanced diet: about half the time caffeine: Yes Type: carbonated beverages Number of servings: 1 eating out: 1-3 times/week during the past year weight has: remained stable what type of physical activity do you participate in: none nelson/mormon: Holiness seatbelt use: always do you feel safe at home: Yes 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 Date Name GA/Weeks Outcome Route Bth Weight Infant Gen Labor Lgth Anesthesia Del Locatn Provider FOB 08/20/17 Shellie 37 live - full term 6lbs 13oz Female spinal [facility] Dr. Gordy Guillermo 09/22/19 Miles 39 live - full term C- section Male spinal [facility] Dr. Anderson Delivery Date: 08/20/17 Last Updated by: Cassi Cavanaugh No issues during . Breech- PPROM Delivery Date: 09/22/19 Last Updated by: Key Merritt RLTCS HPI 37 WK OB Details: SHERYL ALFORD is a 31 year old who presents for routine OB visit. OB Visit DIO Calculator Estimated Delivery Date Method Current WG Current Estimate 09/22/22 Ultrasound #2 38w 0d Other Estimates 09/14/22 LMP (Certain) 39w 1d Expected Delivery Route/Plan RLTCS and BS Labor Preferences- CB/BF classes: [] labor support person: [] labor intervention preferences: [] pain management options preferred: [] cut cord/dad catch: [] : [] PP control planned: [] discussed possible routes of delivery and associated risks: [] special requests: [] Specific Issue/Plans Covid status: discused Flu vaccine: discussed Tdap vaccine: given Rhogam: na LARC form signed: signed movement and labor precautions reviewed. Problem list reviewed and updated with the most current plan of care details and appropriate orders placed. Relevant counseling for the gestational age provided. Continue routine care and follow up unless otherwise noted in visit notes/problem list details Initial Weight: Not Recorded Date -?-?-?-?-?-?-?-?-?-?-?-?- EGA Weight BP Urine Prot -?-?-?-?-?-?-?-?-?-?-?-?- Glucose FHR FuHt Pres Dilation -?-?-?-?-?-?--?-?-?-?-?-?- Effaced St Visit Note 02/13/22-?-?-?-?-?-?-?-?-?-?-?-?- 8w 3d 147 lb 112/80 -?-?-?-?-?-?-?-?-?-?-?-?- 160 -?-?-?-?-?-?-?-?-?-?-?-?- SM- CRL 1.5 cm NOT cons with LMP 03/17/22-?-?-?-?-?-?-?-?-?-?-?-?- 13w 0d 144 lb 6 oz 115/76 Negative -?-?-?-?-?-?-?-?-?-?-?-?- Negative 156 -?-?-?-?-?-?-?-?-?-?-?-?- JV- CRL measuring 13 weeks today on multiple views. pt reassured of accurate DIO today. JV- CRL measuring 13 weeks today on multiple views. pt reassured of accurate DIO today. TSH ordered. 04/14/22-?-?-?-?-?-?-?-?-?-?-?-?- 17w 0d 146 lb 6 oz 130/64 Negative -?-?-?-?-?-?-?-?-?-?-?-?- Negative 160 -?-?-?-?-?-?-?-?-?-?-?-?- LC- RLS recommended magnesium. no concerns. no vb/cramping. declines afp. 05/16/22-?-?-?-?-?-?-?-?-?-?-?-?- 21w 4d 152 lb 8 oz 102/59 -?-?-?-?-?-?-?-?-?-?-?-?- 150 -?-?-?-?-?-?-?-?-?-?-?-?- SM- no vb lof cramping 06/07/22-?-?-?-?-?-?-?-?-?-?-?-?- 24w 5d 155 lb 114/69 Negative -?-?-?-?-?-?-?-?-?-?-?-?- Negative 145 25 -?-?-?-?-?-?-?-?-?-?-?-?- JV- no lof, vaginal bleeding, or dec fm. has scheduled 07/05/22-?-?-?-?-?-?-?-?-?-?-?-?- 28w 5d 163 lb 99/61 Negative -?-?-?-?-?-?-?-?-?-?-?-?- Negative 148 28 -?-?-?-?-?-?-?-?-?-?-?-?- LC- fasting less than 90, pp 110-130, seeing global clinical leader, reviewed diet/exercise guidelines.+fm, no lof/vb/ctx.larc signed, tdap given. 07/20/22-?-?-?-?-?-?-?-?-?-?-?-?- 30w 6d 162 lb 4 oz 102/71 Negative -?-?-?-?-?-?-?-?-?-?-?-?- Negative 147 30 -?-?-?-?-?-?-?-?-?-?-?-?- JV- some pp are upwards of 133 but overall doing well with glucose levels in the 80's fasting and under 120 pp. no lof ,vaginal bleeding, or dec fm. has extreme fatigue. encouraged to try antihistamines and iron supplement 07/31/22-?-?-?-?-?-?-?-?-?-?-?-?- 32w 3d 162 lb 103/69 Trace -?-?-?-?-?-?-?-?-?-?-?-?- Negative 140 32 -?-?-?-?-?-?-?-?-?-?-?-?- LC-fastings less than 90,PP less than 120. no vb/ctx/lof. good fm. no concerns. feeling well. 08/14/22-?-?-?-?-?-?-?-?-?-?-?-?- 34w 3d 163 lb 121/55 Negative -?-?-?-?-?-?-?-?-?-?-?-?- Negative 150 34 -?-?-?-?-?-?-?-?-?-?-?-?- SM- no vb lof good fm nor euglar ctx 08/28/22-?-?-?-?-?-?-?-?-?-?-?-?- 36w 3d Negative -?-?--?-?-?-?-?-?-?-?-?-?- Negative 150 37 0-?-?-?-?-?-?-?-?-?- ?-?-?- KW-+fm. no lof/vb/ctx. US at 79%. no concerns today 09/08/22-?-?-?--?-?-?-?-?-?-?-?-?- 38w 0d 162 lb 2 oz 120/70 Negative -?-?-?-?-?-?-?-?-?-?-?-?- Negative 150 38 -?-?-?-?-?-?-?-?-?-?-?-?- Sm- no vb lof good fm no regular ctx ACOG First Trimester First Trimester: Discussed Second Trimester Second Trimester: Signs and Symptoms of Labor, Selecting a care provider, Reproductive Life Planning & Contreception, Care Planning, Depression/Anxiety and Intimate Partner Violence; Discussed Tobacco Cessation Diagnostics Diagnostics Diagnostics: Gest Glucose Tolerance MG/DL Glucose 1 Hr 50 gm 159 mg/dL (70-140) H HIV 1&2 Antibody Non-Reactive (Nonreactive) Hgb 10.9 g/dL (12.0-15.0) L Hct 33.4 % (37-47) L Details: HIV: Urine Culture: Sequential Screen: NIPT Screen: ROS Const Reports system reviewed and no additional complaints, except as documented Card Reports system reviewed and no additional complaints, except as documented Resp Reports system reviewed and no additional complaints, except as documented GI Reports system reviewed and no additional complaints, except as documented and Reports nausea Reports system reviewed and no additional complaints, except as documented Musc Reports system reviewed and no additional complaints, except as documented Exam Const General: cooperative, healthy appearing, comfortable and anxious [facility] Head: normal to inspection Nose: external nose normal Face and sinus: normal facial exam Neck Neck: normal visual inspection, full ROM and no lymphadenopathy Thyroid: thyroid normal Chest Chest palpation & inspection: normal inspection of the chest Resp Effort & Inspection: normal respiratory effort GI Inspection: normal to inspection Palpation: soft and other (gravid uterus) Other: vertex and appropriate size for gestational age Other: Cervical Exam: Extrem General: pedal edema Results POC Urinalysis 2 Dip (Clinic) Office Urine Glucose Negative Last Edit by Nandini Jerry on 09/08/22 09:44 Office Urine Protein Negative Last Edit by Nandini Jerry on 09/08/22 09:44 Coding Level of Care Code OB Routine Diagnoses Gestational diabetes mellitus (GDM) O24.419 Sterilization Z30.2 History of Z98.891 Supervision of high risk , antepartum O09.90 38 weeks gestation of Z3A.38 Weeks of gestation: 38 weeks Anxiety F41.9 Hypothyroidism E03.9 Assessment and Plan Assessment and Plan (1) Gestational diabetes mellitus (GDM): Status: Acute Comment: BS testing 4 times per day, home health billing specialist consult, growth US at 36 weeks (79%) (2) Sterilization: Status: Acute Comment: title 19 signed 05/16 (3) History of : Status: Acute Comment: 08/20/2017. 09/22/19, scheduled RLTCS 09/15 @ 7:30 and BS with SM (4) Supervision of high risk , antepartum: Status: Acute Comment: PRR , DIO 09/22/22, girl Lashellwillian Hensley, Miles Eagle (5) : Status: Acute Qualifiers: Weeks of gestation: 38 weeks Qualified Code(s): Z3A.38 - 38 weeks gestation of Comment: GBS neg, NIPT low risk, declined carrier testing anatomy nl. (6) Anxiety: Status: Acute Comment: vistaril PRN, zoloft, counseling encouraged (7) Hypothyroidism: Status: Acute Comment: plan testing q trimester 06/17 =2.3 Orders: Orders POC Urinalysis 2 Dip (Clinic) Today Plan Details Goals & Barriers: Goals Decrease pain and spasm Decrease inflammation Improve ROM Barriers Nursing plan RLTCS UPDATE- I have seen the patient and performed any clinically relevant updates to the history and physical exam. Marva Anderson MD
--- NOTE | 2022-09-15 07:33 | EX.PCM.OBRPT ---
Assessment & Plan (1) Gestational diabetes mellitus (GDM): COMMENT: BS testing 4 times per day, destination imagination coordinator consult, growth US at 36 weeks (79%) (2) Sterilization: COMMENT: title 19 signed 05/16 (3) Supervision of high risk , antepartum: COMMENT: PRR , DIO 09/22/22, girl Lashell Hensley, Clyde Eagle (4) : QUALIFIERS: Weeks of gestation: 38 weeks Qualified Code(s): Z3A.38 - 38 weeks gestation of COMMENT: GBS neg, NIPT low risk, declined carrier testing anatomy nl. (5) History of : COMMENT: 08/20/2017. 09/22/19, scheduled RLTCS 09/15 @ 7:30 and BS with SM (6) Anxiety: COMMENT: vistaril PRN, zoloft, counseling encouraged (7) Hypothyroidism: COMMENT: plan testing q trimester 06/17 =2.3 (8) delivery delivered: COMMENT: SM RLTCS BS 39 kristin Lobo Maternal Data Information DIO Calculator Estimated Delivery Date Method Current WG Current Estimate 09/22/22 Ultrasound #2 39w 0d Other Estimates 09/14/22 LMP (Certain) 40w 1d Final DIO Source: LMP Details Operative Information Date of Procedure: 09/15/22 Pre-Operative Diagnosis: Previous Post-Operative Diagnosis: same Indications for : Repeat Elective (bilateral salpingectomy) Indications Narrative: Surgeon: Marva Anderson MD Classification: Scheduled Procedure Type: low transverse (bilateral salpingectomy) java scala developer #1: Monique Mantilla java scala developer #2: Caitlin Milton Type of Anesthesia: Spinal Special Medications: none Antibiotic Given: Ancef 2 grams IV x1 Drain: Hussein to straight drain Estimated Blood Loss: 800 Fluids Replaced: crystalloid Findings Description of Procedure: The patient is a previous s x 2 presented for repeat . Spinal anesthesia was placed without difficulty. Hussein catheter was placed. The patient was placed in the dorsal supine position with leftward tilt. Patient was prepped and draped in the normal sterile fashion. Pfannenstiel skin incision was made with the scalpel and carried through to the underlying layer of fascia with the scalpel. Fascia was nicked in the midline and the incision extended laterally. The rectus bellies were dissected off superiorly and inferiorly with out complication both sharply and bluntly. The peritoneum was entered digitally. The incision was stretched and a low transverse uterine incision was made with the scalpel. The infant's head was delivered atraumatically followed by the anterior and posterior shoulders without complication the rest of the delivered. The cord was clamped and cut and the was handed off to awaiting nurse. The placenta was delivered spontaneously immediately following and was noted to be intact and have a three-vessel cord. The uterus was exteriorized cleared of all clots and debris, and the incision was closed in a single layer closure using #1 Monocryl. The ovaries and fallopian tubes were noted to be within normal limits. Patient had desired sterilization and was counseled preoperatively regarding irreversibility and permanency. Therefore bilateral fallopian tubes were elevated and transected across using a LigaSure device starting proximally to distally without complication the entire fallopian tubes were removed. The uterus was returned to the maternal abdomen and gutters were cleared of all clots and debris. The peritoneum was closed with 3-0 Monocryl in a running fashion. Gloves were changed prior to fascial closure. Fascia was closed with 0 PDS in a running fashion. Subcutaneous tissue was copiously irrigated and the skin was closed with 3-0 Monocryl in a subcuticular fashion. Mepilex dressing was applied without complication. Patient was taken to recovery in stable condition. Amniotic Membrane Rupture Type: Artificial Amniotic Fluid Description: Clear Placenta Disposition: [facility] Cord Vessel Description: 3 Vessels Delayed Cord Clamping: Yes Complications Risks of Surgery Discussed w/Patient: Bleeding, Infection, Need for Future C-Sections and Injury to surrounding structure(s) including bowel and bladder Vaginal Delivery Complication Complications: None Admit VTE Documentation VTE Present on Admission: No VTE Mechan Device Prophylaxis: SCD's Procedures Urinary/Genital [id number]: [id number] delivery+PP Care([facility])
--- NOTE | 2022-09-15 07:35 | DCINST_ITS ---
Discharge Instructions Diet Discharge Diet: No restrictions Activity Discharge Activity: May Not Drive (for 2 weeks or while taking narcotic pain medications.), May Shower and May Take a Tub Bath (in 7 days) May shower in (days): 0 May resume sexual activity in: 4-6 weeks Weight Bearing Status: Full weight bearing Lifting Restrictions: 20 pounds Dressing / Incision Call your doctor if your incision/area has: Continuous Slow Oozing, Sudden Increased Bleeding, Increased Pain/ Swelling, Increased Redness and Foul Smelling Discharge Call your doctor if you observe: Fever of 101 or Higher and Using more than 1 pad per hour (for 2 hours) Suture Line Care: Avoid Pulling/Pushing and Avoid Pinching/Bending Cleanse incision/area with: Soap & Water and Keep Dressing Clean & Dry Follow Up Care Please Follow Up With: Marva Anderson MD When: Call [phone] to make an appointment for an incision check in 1-2 weeks. Test Results: Test results from this visit will be discussed in further detail at your follow- up appointment, if applicable. Discharge Plan Admission Admit Date/Time: 09/15/22 05:13 Attending Provider: Marva Anderson Primary Care Provider: Francesca Uribe Discharge Orders/Prescriptions Prescriptions: New oxycodone-acetaminophen [Percocet] 5-325 mg tablet 1 tab PO Q6H PRN (Reason: pain) 7 Days Qty: 20 0RF naproxen [naproxen] 500 mg tablet 500 mg PO BID PRN PRN (Reason: Pain) Qty: 30 1RF Continued PNV no.[id number] 400 mcg-35 mg- 25 mg-5 mg tablet,chewable 1 tab PO sertraline [Zoloft] 50 mg tablet 50 mg PO BID Qty: 180 2RF magnesium citrate 100 mg capsule 200 mg PO DAILY (DME) blood-glucose meter Misc See Rx Instructions .MEDSUPPLY Qty: 1 0RF Rx Instructions: As directed- Test fasting and 2 hours after meals (DME) lancets Misc See Rx Instructions .MEDSUPPLY Qty: 100 6RF Rx Instructions: As directed (DME) Blood Glucose Test Strip See Rx Instructions .Route Qty: 50 8RF Rx Instructions: As directed- fasting & 2 hours PP levothyroxine 50 mcg tablet 50 mcg PO DAILY Qty: 90 2RF Referrals / Follow Up: Francesca Uribe MD [Primary Care Provider] -
[2022-09-15] MEDS: Cefazolin 2 GM in 0.9% Normal Saline 100 ML IV (07:37)
--- NOTE | 2022-09-15 08:02 | FALS_PTH ---
PATIENT: SHERYL ALFORD LOC: [facility] U#:[id number] AGE/SX: 31/F [facility]: Dr. Marva Anderson MD : 1990 BED: 1 DIS: 09/16/2022 SPEC #: [id number] RECD: 09/15/22 09:37 STATUS: PATRICE OWENS #: [id number] CHAITANYA: 09/15/22 08:[address]: Marva Anderson DEPT: SURGICAL PATHOLOGY RECD BY: Catrachita Tapia ENTERED: 09/15/22 10:42 SP TYPE: FALL TUBES OTHR DR: Dr. Francesca Uribe MD Tissues: Fallopian tube Procedures: Surgery Specimen Level II Surgery Specimen Level IV HEADER OPERATION: Tubal ligation PRE-OP DIAGNOSIS: Sterilization TISSUE SUBMITTED: Fallopian tubes, suture in right MICROSCOPIC DIAGNOSIS Right fallopian tube, salpingectomy: Complete segment with hydrosalpinx. Left fallopian tube, salpingectomy: Complete segment with benign paratubal cyst. AM:tiffanie 09/18/2022 MICROSCOPIC DESCRIPTION Slides are reviewed. GROSS DESCRIPTION Received in fixative is one container labeled with the patient's name and designated bilateral fallopian tubes, right with suture. The specimen consists of two fallopian tubes with an average length of 6.0 cm and has an average diameter of 0.8 cm. Both fallopian tubes have normal fimbriated ends. The fimbrial end of the left fallopian tube contains a smooth, glistening cyst measuring 1.3 cm and containing clear fluid. Medical Reviewer sections are submitted in two cassettes as follows: 1 - right fallopian tube, 2 - left other fallopian tube and paratubal cyst. / AM:tiffanie 09/15/2022 TC:5 CPT: 64946, 58864
[2022-09-15 08:24] LABS: Syphilis Antibodies Non-reactive
[2022-09-15] MEDS: Ketorolac 30 MG/ML Syringe IV ×3 (09:20→20:59)
[2022-09-15] MEDS: Oxytocin 15 Units/NS 250ml 15 UNITS/250 ML IV.SOLN 83 UNITS IV (09:20)
[2022-09-15 09:37] LABS: Pathology Specimen OB SEE PATHOLOGY REPORT
[2022-09-15 09:59] LABS: Bedside Glucose 93 mg/dL (74-106)
[2022-09-15] MEDS: 0.9% Saline Lock 10 ML Syringe IV ×3 (14:25→21:00)
--- NOTE | 2022-09-15 15:20 | CASEMGMT ---
Social Work Assessment Labor and Delivery Unit Patient Address: [address] [place] [address] Phone number: [phone] Date of Referral: 09/15/22 Time of Referral:? [phone] Referred By: Nursing staff Date of Intervention: ??09/15/22 Time of Intervention:?0 Reason for Referral:? Sw informed by nursing staff that social work consult necessary due to maternal history of anxiety. Sw complete chart review. Sw presented to bedside and met with mother of baby (ISAAC- Ani) and father of baby (FOSteven- Dave). Sw explained sw role during admission. Sw completed psychosocial assessment and when appropriate asked FOB to step out of room so MOB could complete Oakman Depression Scale. FOB politely and respectfully stepped out of room. History obtained from: medical records, MOB and FOB??? Household composition: Currently residing in the family home is LISET, ISAAC, their two older children (Shellie: 5 years old, and Clyde 3 years old) and now baby girl. Patient's parent/guardian status:? Parents report that they met each other when they were in high school and started dating. They now have been for 10 years. When meeting with MOB privately she denies any concerns of domestic violence or intimate partner violence. Medical History: ISAAC is 6, para 2, now 5. ISAAC received routine care during with [place]. ISAAC delivered baby via repeat at 39 weeks gestation. Baby girl, Lashell, was born on 09/15 weighing ?7lb 5oz and apgars were 8 and 9 at one and five minutes of life. Baby was born frankie positive. MOB states that she is breast feeding and this is going well. MOB states that she does have a pump for at home. Educational Status: Both parents graduated from high school, no college education. Financial Status: LISET is gainfully employed outside of the home. LISET states that he started up his own [employer] company last July and he has 4 employees that now work for him. LISET states that he is able to take off the next week of work. 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 Infant Supplies:?MOB states that she has everything she needs for baby including: car seat, safe sleep space, clothes, diapers, wipes, and breast pump. ? Childcare/Caregiver(s):? ISAAC states that she is the primary caregiver, along with FOB when he is not at work. MOB states that they also have family members who are able to help when they are not at work. Currently maternal grandma is watching the other two children while parents are at the hospital. Transportation:?Parents state that they have reliable transportation. No concerns regarding barriers to transportation at this time Programs/Agencies Involved: ??Parents deny linkage to financial community supports at this time. ? Children Services/Legal Issues:???No former involvement with Children Services. No issues or concerns warranting referral at this time Behavioral Health Issues: ??Mental Health History:?LISET denies mental health diagnoses. MOB states that she has been diagnosed with anxiety. MOB is prescribed zoloft and states that it really helps her. Sw educated parents on signs and symptoms of baby blues, depression/ anxiety and psychosis. MOB denies ever experiencing baby blues or symptoms. ?? Substance Use History: MOB denies substance use prior to or during ?? Family History: Parents deny mental health history and substance use history in their families. ? Drug Screens: ?No toxicology reports observed in chart review during . Family/Social Stressors:? MOB denies issues or concerns at this time. Support Systems: Parents state their parents are all supportive and helpful. Depression/Shaken Baby/Safe Sleeping:?Sw provided education and literature on signs and symptoms of baby blues and depression/ anxiety. Parents expressed understanding. Sw also educated parents on shaken baby prevention and ABCs of safe sleep. ASSESSMENT:? Parents were very polite and engaged during psychosocial assessment. Both parents were observed to care for in loving and tender manner. MOB was talkative and receptive to sw involvement and support. MOB was open to discussing her anxiety and mental health. PLAN:? MOB and baby to be discharged when medically ready. ?No other services requested or indicated. Dion Dee, STAFF WEAPONS OFFICER, DEPLOYMENT ENGINEER
[2022-09-15] MEDS: Levothyroxine 50 MCG Tablet PO (20:59)
[2022-09-15] MEDS: Sertraline 100 MG Tablet PO (20:59)
[2022-09-16 00:03] VITALS: BP 92/54; PULSE 88; RESP 16; TEMP 36.6; O2SAT 96
[2022-09-16] MEDS: Acetaminophen 500 MG Tablet 1000 MG PO ×2 (00:05→06:22)
[2022-09-16] MEDS: Ketorolac 30 MG/ML Syringe IV (03:07)
[2022-09-16] MEDS: 0.9% Saline Lock 10 ML Syringe IV ×3 (03:07→11:41)
[2022-09-16 03:15] VITALS: BP 93/55; PULSE 74; RESP 16; TEMP 36.3; O2SAT 100
[2022-09-16 06:39] LABS: Hematocrit 25.3 % (37-47); Hemoglobin 7.8 g/dL (12.0-15.0); Mean Corp Hgb Conc 30.8 g/dL (32-36); Mean Corpuscular Hgb 24.4 pg (27.0-32.0); Mean Corpuscular Volume 79.1 fL (81-99); Mean Platelet Vol. 11.2 fl (6.2-12.0); Platelet Count 364 K/mm3 (150-450); RBC Distribution Width CV 14.9 % (11.6-14.6); RBC Distribution Width SD 42.9 fl (35.1-43.9); White Blood Count 17.4 K/mm3 (4.4-11.0)
[2022-09-16 06:42] LABS: Bedside Glucose 77 mg/dL (74-106)
[2022-09-16 08:09] VITALS: BP 103/62; PULSE 77; RESP 16; TEMP 36.4; O2SAT 99
[2022-09-16] MEDS: Naproxen 500 MG Tablet PO (09:16)
--- NOTE | 2022-09-16 10:02 | PCM.PN.OB ---
Subjective Subjective Patient is laying in bed comfortably without complaints. She states that she slept on an off during the night. Lochia is mild and pain is minimal. hg down to 7.8 but is asymptomatic. patient agrees to iron infusion before dc to home Objective Data Objective Data Vital Signs: Vital Signs Temp Pulse Resp BP Pulse Ox O2 Del Method 97.6 F L 77 16 103/62 99 Room Air 09/16/22 08:09 09/16/22 08:09 09/16/22 08:09 09/16/22 08:09 09/16/22 08:09 09/16/22 03:15 Oxygen Delivery Method Room Air Weight: 162 lb 4.163 oz Body Mass Index (BMI) 27.8 Intake & Output: Intake and Output for Last 24 Hours 09/14/22 09/15/22 09/16/22 23:59 23:59 23:59 Intake Total 2360.00 / 2360.00 Output Total 2100 / 2100 525 / 525 Balance 260.00 / 260.00 -525 / -525 Lab / Micro Data 09/16/22 06:19 Labs: Laboratory Results - last 24 hr 09/16/22 06:03: POC Glucose 77 09/16/22 06:19: WBC 17.4 H, RBC 3.20 L, Hgb 7.8 L, Hct 25.3 L, MCV 79.1 L, MCH 24.4 L, MCHC 30.8 L, RDW Std Deviation 42.9, RDW Coeff of Casandra 14.9 H, Plt Count 364, MPV 11.2 ROS Constitutional Constitutional: Reports systems reviewed and no addt'l complaints, except as documented Cardiovascular Cardiovascular: Denies chest pain, dizziness, dyspnea or irregular heart rhythm Respiratory/Chest Respiratory/Chest: Denies cough, pain on inspiration or shortness of breath at rest Gastrointestinal Gastrointestinal: Denies abdominal pain, nausea or vomiting Genitourinary Genitourinary: Denies burning urination Musculoskeletal Musculoskeletal: Denies muscle cramps, muscle spasms or muscle weakness Neurologic Neurologic: Denies confusion, dizziness, headache(s) or lack of coordination Psychiatric Psychiatric: Denies anxiety, behavioral changes or depression Physical Exam HEENT normocephalic Resp normal respiratory effort and normal air movement GI soft to palpation, non-tender and non-distended Rectal Exam: other Other Details: Incision is clean, dry, and intact no CVA tenderness Extremity normal to inspection General Extremity: edema bilateral (trace ) Assessment & Plan (1) delivery delivered: COMMENT: SM RLTCS BS 39 girl Lashell (2) Anemia: PLAN: pt started low and did not lose more than expected amount of blood. she is asymptomatic at this time. My fear is that she will suffer with headaches and worsening restless legs and develop fatigue. we discussed trying an iron infusion before dc to home with close follow up in 2 weeks. rpt cbc in 4 weeks or sooner as needed.
== END 2022-09-16 12:55 | disposition home or self-care (01) | DRG 539 ==
PROVIDERS: Admitting Provider Obstetrics & Gynecology; PCP Internal Medicine; Visit Provider Obstetrics & Gynecology
PROC: 10D00Z1 Extraction of Products of Conception, Low, Open Approach (ICD-10-PCS; CPT 59514; principal; 2022-09-15 07:15)
DX: O34.219 Maternal care for unspecified type scar from previous cesarean delivery (principal); D64.9 Anemia, unspecified; E03.9 Hypothyroidism, unspecified; F41.9 Anxiety disorder, unspecified; O24.429 Gestational diabetes mellitus in childbirth, unspecified control; Z3A.38 38 weeks gestation of pregnancy; Z30.2 Encounter for sterilization; Z37.0 Single live birth; O99.344 Other mental disorders complicating childbirth; O99.03 Anemia complicating the puerperium; O99.284 Endocrine, nutritional and metabolic diseases complicating childbirth; Z79.890 Hormone replacement therapy; Z79.899 Other long term (current) drug therapy
CPT/HCPCS: 59025; 59050; 82962; 85025; 85027; 86780; 86850; 86900; 86901; 88302; 88305; 99221; J1756; J7120; A4216; G0378; J2405

== ENCOUNTER → 2022-10-31 | Outpatient (CLI) | payer MEDICAID, SELFPAY ==
[2022-10-31 10:04] LABS: Absolute Lymphocyte Count 1.59 X10^3/uL (0.83-4.51); Absolute Neutrophil Count 4.6 X10^3/uL (2.0-7.7); Basophil# 0.05 X10^3/uL; Basophil% 0.7 % (0-1); Eosinophil# 0.34 X10^3/uL; Eosinophils% 4.9 % (0-5); Hematocrit 38.2 % (37-47); Hemoglobin 11.2 g/dL (12.0-15.0); Lymphocyte # 1.59 X10^3/ul (0.83-4.51); Lymphocyte % 22.7 % (19-41); Mean Corp Hgb Conc 29.3 g/dL (32-36); Mean Corpuscular Hgb 23.8 pg (27.0-32.0); Mean Corpuscular Volume 81.1 fL (81-99); Monocyte# 0.42 X10^3/uL; NRBC Flagged by Analyzer 0 % (0-5); Neutrophil # 4.56 X10^3/uL (2.7-7.7); Neutrophil % 65.3 % (47-70); Platelet Count 412 K/mm3 (150-450); RBC Distribution Width CV 19.9 % (11.6-14.6); RBC Distribution Width SD 58.9 fl (35.1-43.9); Red Blood Count 4.71 M/mm3 (4.2-5.4)
== END | disposition home or self-care (01) ==
LOC: LAB 09:28
PROVIDERS: PCP Internal Medicine; Referring Provider Obstetrics & Gynecology; Visit Provider Obstetrics & Gynecology
DX: D64.9 Anemia, unspecified (principal)
CPT/HCPCS: 36415; 85025

== ENCOUNTER → 2023-07-05 | Outpatient (CLI) | payer MEDICAID, SELFPAY ==
[2023-07-05 11:25] LABS: Absolute Lymphocyte Count 1.87 X10^3/uL (0.83-4.51); Absolute Neutrophil Count 4.7 X10^3/uL (2.0-7.7); Basophil# 0.08 X10^3/uL; Eosinophil# 0.45 X10^3/uL; Eosinophils% 5.9 % (0-5); Hematocrit 38.6 % (37-47); Hemoglobin 11.9 g/dL (12.0-15.0); Lymphocyte # 1.87 X10^3/ul (0.83-4.51); Lymphocyte % 24.3 % (19-41); Mean Corp Hgb Conc 30.8 g/dL (32-36); Mean Corpuscular Hgb 25.1 pg (27.0-32.0); Mean Corpuscular Volume 81.3 fL (81-99); Mean Platelet Vol. 10.6 fl (6.2-12.0); Monocyte% 7.8 % (0-10); NRBC Flagged by Analyzer 0 % (0-5); Neutrophil # 4.67 X10^3/uL (2.7-7.7); Neutrophil % 60.9 % (47-70); Platelet Count 389 K/mm3 (150-450); RBC Distribution Width CV 17.3 % (11.6-14.6); RBC Distribution Width SD 51.8 fl (35.1-43.9); Red Blood Count 4.75 M/mm3 (4.2-5.4); White Blood Count 7.7 K/mm3 (4.4-11.0)
[2023-07-05 11:54] LABS: Vitamin D,25 Hydroxy 24.8 ng/mL
== END | disposition home or self-care (01) ==
LOC: LAB 10:51
PROVIDERS: PCP Internal Medicine; Referring Provider Obstetrics & Gynecology; Visit Provider Obstetrics & Gynecology
DX: R53.83 Other fatigue (principal)
CPT/HCPCS: 36415; 82306; 84443; 85025

== ENCOUNTER → 2023-07-06 | Outpatient (CLI) | payer MEDICAID, SELFPAY ==
[2023-07-06 09:10] LABS: T4 Free Direct 0.62 ng/dL (0.76-1.46)
== END | disposition home or self-care (01) ==
LOC: LAB 08:15
PROVIDERS: PCP Internal Medicine; Referring Provider Obstetrics & Gynecology; Visit Provider Obstetrics & Gynecology
DX: R53.83 Other fatigue (principal); E03.9 Hypothyroidism, unspecified
CPT/HCPCS: 36415; 84439; 84481

== ENCOUNTER → 2023-07-13 | Outpatient (CLI) | payer MEDICAID, SELFPAY | END | disposition home or self-care (01) | LOC: LABSPEC 10:07 | PROVIDERS: PCP Internal Medicine; Referring Provider Physician Assistant Surgical; Visit Provider Physician Assistant Surgical | DX: N39.0 Urinary tract infection, site not specified (principal) | CPT/HCPCS: 87077; 87086; 87088; 87186 ==

== ENCOUNTER → 2023-07-28 | Outpatient (CLI) | payer MEDICAID, SELFPAY ==
[2023-07-28 10:38] LABS: ALB/GLOB Ratio 1.1 RATIO (0.9-2.4); AST(SGOT) 26 U/L (15-37); Alanine Aminotransfer ALT/SGPT 33 U/L (13-56); Albumin, Serum 3.9 g/dL (3.2-5.0); Alkaline Phosphatase 115 U/L (45-117); Anion Gap 7 (5-15); BUN 12 mg/dL (7-18); BUN/Creat Ratio 17.6 RATIO (10-20); Calcium,Total 8.8 mg/dL (8.5-10.1); Chloride 107 mmol/L (98-107); Cholesterol 209 mg/dL (200); Creatinine, Serum 0.68 mg/dL (0.55-1.02); EST Glomerular Filtration Rate 107 mL/min (>60); Est Glom Filt Rate - Afr Amer 130 mL/min (>60); Ferritin 6 ng/mL (8-252); Globulin 3.7 g/dL (2.2-4.2); Glucose 103 mg/dL (74-106); High Density Lipoprotein 77 mg/dL; Iron 21 ug/dL (50-170); Iron Binding Capacity,Total 387 ug/dL (250-450); Potassium 3.9 mmol/L (3.5-5.1); Protein, Total 7.6 g/dL (6.4-8.2); Sodium Level 140 mmol/L (136-145); Triglycerides 60 mg/dL; Very Low Density Lipoprotein 12 mg/dL (5-40)
[2023-08-02 16:09] LABS: T3 Reverse 13.9 ng/dL (9.2-24.1)
== END | disposition home or self-care (01) ==
LOC: LAB 09:40
PROVIDERS: PCP Internal Medicine; Referring Provider Nurse Practitioner; Visit Provider Nurse Practitioner
DX: G25.81 Restless legs syndrome (principal); E03.9 Hypothyroidism, unspecified
CPT/HCPCS: 36415; 80053; 80061; 82728; 83540; 83550; 84482

== ENCOUNTER → 2023-09-07 | Outpatient (CLI) | payer MEDICAID, SELFPAY ==
[2023-09-07 10:05] LABS: Vitamin D,25 Hydroxy 33.2 ng/mL
[2023-09-07 10:13] LABS: Ferritin 10 ng/mL (8-252); Iron 29 ug/dL (50-170); Iron Binding Capacity,Total 365 ug/dL (250-450); T4 Free Direct 1.18 ng/dL (0.76-1.46); Thyroid Stim Hormone (TSH) 1.33 uIU/mL (0.358-3.74)
== END | disposition home or self-care (01) ==
LOC: LAB 09:06
PROVIDERS: PCP Internal Medicine; Referring Provider Nurse Practitioner; Visit Provider Nurse Practitioner
DX: E03.9 Hypothyroidism, unspecified (principal); D50.9 Iron deficiency anemia, unspecified; R79.89 Other specified abnormal findings of blood chemistry
CPT/HCPCS: 36415; 82306; 82728; 83540; 83550; 84439; 84443

== ENCOUNTER → 2023-11-15 | Outpatient (CLI) | payer MEDICAID, SELFPAY ==
[2023-11-15 12:16] LABS: Absolute Lymphocyte Count 1.64 X10^3/uL (0.83-4.51); Absolute Neutrophil Count 3.3 X10^3/uL (2.0-7.7); Basophil# 0.05 X10^3/uL; Basophil% 0.9 % (0-1); Eosinophil# 0.23 X10^3/uL; Hemoglobin 12.6 g/dL (12.0-15.0); Lymphocyte # 1.64 X10^3/ul (0.83-4.51); Lymphocyte % 28.7 % (19-41); Mean Corp Hgb Conc 31.5 g/dL (32-36); Mean Corpuscular Hgb 26.7 pg (27.0-32.0); Mean Corpuscular Volume 84.7 fL (81-99); Monocyte# 0.44 X10^3/uL; Monocyte% 7.7 % (0-10); NRBC Flagged by Analyzer 0 % (0-5); Neutrophil # 3.34 X10^3/uL (2.7-7.7); Neutrophil % 58.5 % (47-70); Platelet Count 393 K/mm3 (150-450); RBC Distribution Width CV 16.2 % (11.6-14.6); RBC Distribution Width SD 50.4 fl (35.1-43.9); Red Blood Count 4.72 M/mm3 (4.2-5.4); White Blood Count 5.7 K/mm3 (4.4-11.0)
[2023-11-15 15:37] LABS: Ferritin 11 ng/mL (8-252); Iron 26 ug/dL (50-170); Iron Binding Capacity,Total 308 ug/dL (250-450); T4 Free Direct 1.06 ng/dL (0.76-1.46)
== END | disposition home or self-care (01) ==
LOC: BIMLAB 11:29
PROVIDERS: PCP Internal Medicine; Referring Provider Nurse Practitioner; Visit Provider Nurse Practitioner
DX: D50.9 Iron deficiency anemia, unspecified (principal); E03.9 Hypothyroidism, unspecified
CPT/HCPCS: 36415; 82728; 83540; 83550; 84439; 84443; 85025

== ENCOUNTER → 2023-12-28 | Outpatient (CLI) | payer MEDICAID, SELFPAY ==
[2023-12-28 13:18] LABS: Color, Urine Yellow (Yellow); Glucose, Dipstick Normal (Normal); Ketone-Dipstick Negative (Negative); Leukocyte Esterase-Dipstick 500 /ul (Negative); Nitrite-Dipstick Positive (Negative); Occult Blood-Urine 10 /ul (Negative); Protein-Dipstick Negative (Negative); Urine Bilirubin Dipstick Negative (Negative); Urine Clarity Clear (Clear); Urine Urobilinogen Normal (Normal)
[2023-12-28 16:02] LABS: Red Blood Cells-Urine 0-5 SEEN /hpf (0-5); White Blood Cells 10-25 SEEN /hpf (0-5)
[2023-12-28 16:03] LABS: Bacteria 1+ /hpf (None Seen); Mucous, Urine 1+ /hpf (<or=2+); Squamous Epithelial Cells - UA 5-10 SEEN /hpf (5-10)
== END | disposition home or self-care (01) ==
LOC: LABSPEC 12:10
PROVIDERS: PCP Internal Medicine; Referring Provider Physician Assistant Surgical; Visit Provider Physician Assistant Surgical
DX: R30.0 Dysuria (principal)
CPT/HCPCS: 81001; 87077; 87086; 87088; 87186

== ENCOUNTER 2024-01-04 06:24 | Emergency (ER) | payer MEDICAID, SELFPAY ==
[2024-01-04 06:24] VITALS: BP 95/65; PULSE 128; RESP 16; TEMP 37.7; O2SAT 100; BMI 21.7
[2024-01-04 06:30] VITALS: BP 95/65; PULSE 128; RESP 16; TEMP 37.7; O2SAT 100
--- NOTE | 2024-01-04 07:08 | RAD_ITS ---
STUDY: X-RAY CHEST REASON FOR EXAM: Female, 33 years old. Cough TECHNIQUE: Single AP portable view of the chest. COMPARISON: February 05, 2021 FINDINGS: The lungs are clear and expanded. There is no demonstrated pleural abnormality. Normal size heart. Normal mediastinum and sarah beth. Normal visualized pulmonary arteries. Normal visualized aortic arch and descending thoracic aorta. Normal visualized thoracic spine. Normal visualized ribs, clavicles, and shoulders. There is no demonstrated abnormality of the visualized soft tissue structures of the upper abdomen. RAD/Chest 1 View (Portable) IMPRESSION: Normal x-ray examination of the chest. Electronically Signed: Sharath Villanueva MD at 8:02 EST ,
--- NOTE | 2024-01-04 07:09 | EDS_ITS ---
HPI History of Present Illness Chief Complaint: Cold Sx Detail of Chief Complaint: Cold symptoms Informant: patient Narrative Narrative: Patient presents to the emergency department complaint of cold symptoms that started last evening. She complains of a dry cough and a tickle in her throat. Has some discomfort when she breathes in her chest. She had low-grade fever to 99 6 at home. She denies sick contacts. Patient has heard that there has been pneumonia going around and she is concerned about that. Cough again is nonproductive. She just generally feels achy and has a mild headache and generally feels a little bit weak. [facility] Medical History delivery delivered Infertility History of infertility Anxiety Hypothyroidism Gave to child recently Anxiety Breast lump UTI (urinary tract infection) Seasonal allergies Hyperthyroidism Polycystic disease, ovaries Headaches, cluster Home Medications ?Medication ?Instructions ?Recorded ?Last Taken ?Type semaglutide (weight loss) 0.5 0.5 mg subcut QWEEK 11/15/23 Unknown History mg/0.5 mL subcutaneous pen injector levothyroxine 75 mcg tablet 75 mcg PO DAILY disorder of 01/04/24 Unknown History thyroid gland sertraline 50 mg tablet (Zoloft) 100 mg PO BID depression/anxiety 01/04/24 Unknown History Allergy/AdvReac Type Severity Reaction Status Date / Time Penicillins (PCN) Allergy rash Verified 01/04/24 06:25 tramadol AdvReac fast heart Verified 01/04/24 06:25 rate Family History Mother Anxiety Hormonal disorder Stillborn, normal Grandmother Anxiety Heart disease Father Asthma Brother Depression Psychiatric care Grandfather Diabetes Hypertension Grandmother Thyroid disorder Other Cancer Surgical History Status post bilateral salpingectomy History of History of Social History adopted: No household members: spouse and children housing: house number of children: 3 current occupational status: unemployed current occupational exposures/hazards: No pets and animals: Yes pets and animals: cat(s) history of recent travel: No sexually active: Yes Smoking Status: Never smoker second hand exposure: No alcohol intake: current alcohol intake frequency: holidays/special occasions only substance use type: does not use well-balanced diet: about half the time caffeine: Yes (2-3) Type: carbonated beverages eating out: 1-3 times/week during the past year weight has: remained stable what type of physical activity do you participate in: none frequency: does not exercise nelson/scientology: Amish seatbelt use: always do you feel safe at home: Yes additional social history: -[employer] 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 ROS ROS ED Review of Systems ROS Unobtainable: other Constitutional Constitutional ED: Reports lethargy; Denies chills, fever(s), sweats or weight loss Eyes Eyes: Denies blurry vision, change in vision or diplopia ENT ENT ED: Reports sore throat; Denies rhinorrhea Cardiovascular Cardiovascular: Denies chest pain, orthopnea or racing heartbeat Respiratory/Chest Respiratory/Chest: Reports cough; Denies dyspnea, dyspnea on exertion, orthopnea or sputum Gastrointestinal Gastrointestinal: Denies abdominal pain, diarrhea, nausea or vomiting Genitourinary Genitourinary ED: Denies dysuria, hematuria or urinary frequency Musculoskeletal Musculoskeletal: Denies arthralgias, back pain, myalgias or neck pain Integumentary Denies abscess, Abrasions or rash Neurologic Neurologic: Denies headache(s) or weakness Psychiatric Psychiatric: Denies anxiety, depression or suicidal thoughts Endocrine Endocrinology: Denies polydipsia, polyphagia or polyuria Hematologic/Lymphatic Hematologic/Lymphatic: Denies easy bleeding, easy bruising or lymphadenopathy Allergic/Immunologic Allergic/Immunologic ED: Denies mouth swelling, tongue swelling or urticaria EXAM Physical Exam Narrative Exam Narrative: Patient awake and alert and nontoxic-appearing. Const Vital Signs: 01/04/24 06:24 01/04/24 06:24 01/04/24 06:30 Temperature 99.9 F H 99.9 F H Temperature Source Oral Oral Pulse Rate 128 H 128 H Respiratory Rate 16 16 Respiratory Effort Normal Respiratory Pattern Normal Blood Pressure 95/65 95/65 Blood Pressure Mean 75 75 Pulse Ox 100 100 01/04/24 06:30 Temperature Temperature Source Pulse Rate Respiratory Rate Respiratory Effort Normal Respiratory Pattern Blood Pressure Blood Pressure Mean Pulse Ox Positive well nourished and well developed General Appearance ED: well developed and NAD HEENT Reports TM's clear and moist mucous membranes normocephalic and atraumatic; Negative for trauma or tenderness Tympanic Membrane ED: Yes TM's clear Eyes PERRL and EOMs intact bilaterally General Eye ED: Negative for pale conjunctiva or scleral icterus Neck no lymphadenopathy, supple and no JVD General: Negative for tenderness Chest Wall inspection of chest normal and palpation of chest normal Chest: Negative for tenderness Resp normal respiratory effort and clear to auscultation bilaterally Effort and Inspection: Negative for respiratory distress or pain with movement Auscultation: Negative for rhonchi, wheezes or diminished lung sounds Cardio regular rate, regular rhythm, S1 normal heart sound, S2 normal heart sound and no murmurs Peripheral Pulses: pulses 2+ throughout GI normal to inspection, nondistended, normoactive bowel sounds, soft to palpation, non-tender, non-distended and no masses Back/Spine no CVA tenderness and no thoracic nor lumbar tenderness Extremity normal to inspection General Extremety ED: Negative for edema General Extremity: Negative for edema Neuro oriented x3, CN's II-XII intact bilaterally, no sensory deficits noted and gait normal Sensorium / Orientation: awake, alert, oriented to person, oriented to place and oriented to time Motor Exam: strength 5/5 throughout and strength abnormal Psych mental status grossly normal Skin no rashes or lesions noted and no wounds MDM MDM MDM Narrative Medical decision making narrative: 1 view chest x-ray obtained interpreted by myself and radiology as no evidence of infiltrate or acute disease process. Patient had testing for COVID flu and RSV and was negative. At this point clinically she looks well. She states her blood pressure normally runs a little bit low. She was able to ambulate to the bathroom and back without difficulty. Clinically she looks well. Will discharge to home. I suspect likely a viral upper respiratory infection. She is advised to use ibuprofen for discomfort and push fluids. Patient advised to follow-up with primary care physician within next 3 to 5 days. Patient presents with URI symptoms and concern for pneumonia. Clinically she looks well. Will obtain COVID flu and RSV testing as well as a 1 view chest x-ray. Lab Data Attestation: I reviewed the patient's lab results. Radiography Diagnostic Testing: Clinical Impression(s) from Imaging Studies Chest X-Ray 01/04/24 07:08 IMPRESSION: Normal x-ray examination of the chest. Electronically Signed: Sharath Villanueva MD at 8:02 EST , 1 view chest x-ray obtained interpreted by myself as no evidence of infiltrate or pneumothorax or acute disease process. Radiology in agreement. Discharge Plan Triage Chief Complaint: Cold Sx ED Provider: Russell Mccarty Dx/Rx/DC Orders Clinical Impression: Viral URI Instructions: ED URI, Viral, No Abx (Adult) Prescriptions: No Action semaglutide (weight loss) 0.5 mg/0.5 mL pen injector 0.5 mg subcut QWEEK Rx Instructions: administer weeks 5 through 8 of therapy levothyroxine 75 mcg tablet 75 mcg PO DAILY sertraline [Zoloft] 50 mg tablet 100 mg PO BID Primary Care Provider: Francesca Uribe Referrals: Francesca Uribe MD [Primary Care Provider] - 3-5 Days Print Language: Ugandan Disposition Disposition: Home, Self Care
== END 2024-01-04 08:43 | disposition home or self-care (01) ==
PROVIDERS: Emergency Provider Emergency Medicine; PCP Internal Medicine; Visit Provider Emergency Medicine
DX: J06.9 Acute upper respiratory infection, unspecified (principal); E03.9 Hypothyroidism, unspecified; F41.9 Anxiety disorder, unspecified; E28.2 Polycystic ovarian syndrome; Z88.0 Allergy status to penicillin; Z79.890 Hormone replacement therapy; Z79.899 Other long term (current) drug therapy
CPT/HCPCS: 71045; 87631; 99283

== ENCOUNTER 2024-02-13 12:59 | Outpatient (CLI) | payer MEDICAID, SELFPAY ==
[2024-02-13 13:14] VITALS: BP 98/60; PULSE 73; RESP 16; TEMP 35.9; O2SAT 98; BMI 21.6
[2024-02-13] MEDS: 0.9% NaCl Peripheral Flush Adult/Peds IV (13:27)
[2024-02-13] MEDS: Iron Sucrose Complex 200 MG in 0.9% Normal Saline (100mL Bag) 100 ML 220 MG IV (13:27)
[2024-02-13 14:25] VITALS: BP 104/54; PULSE 76; RESP 16
== END 2024-02-13 23:59 | disposition home or self-care (01) ==
LOC: MEDOUTP 13:00
PROVIDERS: PCP Internal Medicine; Referring Provider Internal Medicine; Visit Provider Internal Medicine
DX: D50.9 Iron deficiency anemia, unspecified (principal)
CPT/HCPCS: 96365; J1756; A4216

== ENCOUNTER 2024-02-15 12:59 | Outpatient (CLI) | payer MEDICAID, SELFPAY ==
[2024-02-15 13:12] VITALS: BP 99/38; PULSE 82; RESP 16; TEMP 35.9; O2SAT 98; BMI 21.9
[2024-02-15] MEDS: 0.9% NaCl Peripheral Flush Adult/Peds IV ×2 (13:19→13:21)
[2024-02-15] MEDS: Iron Sucrose Complex 200 MG in Syringe 1 EACH IV (13:21)
== END 2024-02-15 23:59 | disposition home or self-care (01) ==
LOC: MEDOUTP 12:59
PROVIDERS: PCP Internal Medicine; Referring Provider Internal Medicine; Visit Provider Internal Medicine
DX: D50.9 Iron deficiency anemia, unspecified (principal)
CPT/HCPCS: 96374; J1756; A4216

== ENCOUNTER 2024-02-18 10:01 | Outpatient (CLI) | payer MEDICAID, SELFPAY ==
[2024-02-18 10:07] VITALS: BP 109/41; PULSE 96; RESP 16; TEMP 36.4; O2SAT 100; BMI 21.9
[2024-02-18] MEDS: 0.9% NaCl Peripheral Flush Adult/Peds IV ×2 (10:11→10:23)
[2024-02-18] MEDS: IRON SUCROSE COMPLEX IV (10:16)
== END 2024-02-18 23:59 | disposition home or self-care (01) ==
LOC: MEDOUTP 10:01
PROVIDERS: PCP Internal Medicine; Referring Provider Internal Medicine; Visit Provider Internal Medicine
DX: D50.9 Iron deficiency anemia, unspecified (principal)
CPT/HCPCS: 96374; J1756; A4216

== ENCOUNTER 2024-02-20 10:02 | Outpatient (CLI) | payer MEDICAID, SELFPAY ==
[2024-02-20 10:13] VITALS: BP 100/56; PULSE 86; RESP 16; TEMP 36.2; O2SAT 98
[2024-02-20] MEDS: Iron Sucrose Complex 200 MG in Syringe 1 EACH IV (10:32)
== END 2024-02-20 23:59 | disposition home or self-care (01) ==
LOC: MEDOUTP 10:02
PROVIDERS: PCP Internal Medicine; Referring Provider Internal Medicine; Visit Provider Internal Medicine
DX: D50.9 Iron deficiency anemia, unspecified (principal)
CPT/HCPCS: 96374

== ENCOUNTER 2024-02-22 10:03 | Outpatient (CLI) | payer MEDICAID, SELFPAY ==
[2024-02-22 10:31] VITALS: BP 102/48; PULSE 68; RESP 16; O2SAT 99; BMI 21.9
[2024-02-22] MEDS: 0.9% NaCl Peripheral Flush Adult/Peds IV (10:34)
[2024-02-22] MEDS: Iron Sucrose Complex 200 MG in Syringe 1 EACH IV (10:41)
== END 2024-02-22 23:59 | disposition home or self-care (01) ==
LOC: MEDOUTP 10:03
PROVIDERS: PCP Internal Medicine; Referring Provider Internal Medicine; Visit Provider Internal Medicine
DX: D50.9 Iron deficiency anemia, unspecified (principal)
CPT/HCPCS: 96374; J1756; A4216

== ENCOUNTER → 2024-04-04 | Outpatient (CLI) | payer MEDICAID, SELFPAY ==
[2024-04-04 15:43] LABS: Absolute Lymphocyte Count 2.86 X10^3/uL (0.83-4.51); Absolute Neutrophil Count 3.5 X10^3/uL (2.0-7.7); Basophil# 0.15 X10^3/uL; Basophil% 1.9 % (0-1); Eosinophil# 0.82 X10^3/uL; Eosinophils% 10.5 % (0-5); Hematocrit 43.1 % (37-47); Lymphocyte # 2.86 X10^3/ul (0.83-4.51); Lymphocyte % 36.5 % (19-41); Mean Corp Hgb Conc 32.5 g/dL (32-36); Mean Corpuscular Hgb 29.8 pg (27.0-32.0); Mean Corpuscular Volume 91.7 fL (81-99); Mean Platelet Vol. 10.2 fl (6.2-12.0); Monocyte# 0.48 X10^3/uL; Monocyte% 6.1 % (0-10); NRBC Flagged by Analyzer 0 % (0-5); Neutrophil # 3.48 X10^3/uL (2.7-7.7); Neutrophil % 44.5 % (47-70); POSITIVE MORPHOLOGY YES; Platelet Count 454 K/mm3 (150-450); RBC Distribution Width CV 15.2 % (11.6-14.6); RBC Distribution Width SD 51.4 fl (35.1-43.9); White Blood Count 7.8 K/mm3 (4.4-11.0)
[2024-04-04 15:45] LABS: Differential Indicated SCAN CRITERIA MET
[2024-04-04 15:59] LABS: ALB/GLOB Ratio 1.4 RATIO (0.9-2.4); AST(SGOT) 22 U/L (<=31); Alanine Aminotransfer ALT/SGPT 19 U/L (<=34); Albumin, Serum 4.3 g/dL (3.5-5.0); Alkaline Phosphatase 132 U/L (35-104); Anion Gap 10 (5-15); BUN 11 mg/dL (4-19); BUN/Creat Ratio 15.8 RATIO (10-20); Calcium 9.6 mg/dL (7.6-11.0); Carbon Dioxide 26.9 mmol/L (22.0-29.0); Chloride 101 mmol/L (96-108); Creatinine, Serum 0.72 mg/dL (0.70-1.20); EST Glomerular Filtration Rate 115 (>60); Ferritin 113 ng/mL (22-378); Globulin 3.1 g/dL (2.2-4.2); Glucose 74 mg/dL (70-99); Iron 101 ug/dL (50-170); Potassium 4.1 mmol/L (3.3-5.1); Protein, Total 7.4 g/dL (5.9-8.4); Sodium Level 139 mmol/L (133-145); Total Bilirubin 0.31 mg/dL (0.00-1.30)
[2024-04-04 16:26] LABS: Pathologist Review May foll; Platelet Estimate SLT INC (ADEQ); Reactive Lymphocyte 3+
== END | disposition home or self-care (01) ==
LOC: BIMLAB 12:33
PROVIDERS: PCP Internal Medicine; Referring Provider Physician Assistant; Visit Provider Physician Assistant
DX: R30.0 Dysuria (principal); D50.9 Iron deficiency anemia, unspecified; E03.9 Hypothyroidism, unspecified
CPT/HCPCS: 36415; 80053; 82728; 83540; 84443; 85025; 87086

== ENCOUNTER → 2024-05-19 | Outpatient (CLI) | payer MEDICAID, SELFPAY ==
[2024-05-19 12:40] LABS: Absolute Lymphocyte Count 1.46 X10^3/uL (0.83-4.51); Absolute Neutrophil Count 3.1 X10^3/uL (2.0-7.7); Basophil# 0.04 X10^3/uL; Basophil% 0.8 % (0-1); Eosinophil# 0.14 X10^3/uL; Eosinophils% 2.8 % (0-5); Hematocrit 42.1 % (37-47); Hemoglobin 13.9 g/dL (12.0-15.0); Lymphocyte # 1.46 X10^3/ul (0.83-4.51); Lymphocyte % 28.8 % (19-41); Mean Corpuscular Hgb 29.7 pg (27.0-32.0); Mean Platelet Vol. 10.3 fl (6.2-12.0); Monocyte# 0.29 X10^3/uL; Monocyte% 5.7 % (0-10); NRBC Flagged by Analyzer 0 % (0-5); Neutrophil # 3.12 X10^3/uL (2.7-7.7); Neutrophil % 61.5 % (47-70); Platelet Count 321 K/mm3 (150-450); RBC Distribution Width CV 13.6 % (11.6-14.6); Red Blood Count 4.68 M/mm3 (4.2-5.4); White Blood Count 5.1 K/mm3 (4.4-11.0)
== END | disposition home or self-care (01) ==
LOC: BIMLAB 09:36
PROVIDERS: PCP Internal Medicine; Referring Provider Physician Assistant; Visit Provider Physician Assistant
DX: R55 Syncope and collapse (principal)
CPT/HCPCS: 36415; 85025

== ENCOUNTER → 2024-09-16 | Outpatient (CLI) | payer MEDICAID, SELFPAY | END | disposition home or self-care (01) | LOC: LABSPEC 11:10 | PROVIDERS: PCP Internal Medicine; Visit Provider Physician Assistant | DX: R30.0 Dysuria (principal) | CPT/HCPCS: 87077; 87086; 87088; 87186 ==

== ENCOUNTER → 2024-10-22 | Outpatient (CLI) | payer MEDICAID, SELFPAY ==
[2024-10-22 12:34] LABS: Hematocrit 41.2 % (37-47); Hemoglobin 13.8 g/dL (12.0-15.0); Immature Granulocytes Count 0.010 X10^3/uL (0.0-0.0); Mean Corp Hgb Conc 33.5 g/dL (32-36); Mean Corpuscular Volume 91.6 fL (81-99); Mean Platelet Vol. 10.5 fl (6.2-12.0); NRBC Flagged by Analyzer 0 % (0-5); Platelet Count 330 K/mm3 (150-450); RBC Distribution Width CV 12.7 % (11.6-14.6); RBC Distribution Width SD 42.4 fl (35.1-43.9); Red Blood Count 4.50 M/mm3 (4.2-5.4); White Blood Count 6.0 K/mm3 (4.4-11.0)
[2024-10-22 12:59] LABS: AST(SGOT) 20 U/L (<=31); Alanine Aminotransfer ALT/SGPT 14 U/L (<=34); Albumin, Serum 4.6 g/dL (3.5-5.0); Alkaline Phosphatase 86 U/L (35-104); Anion Gap 10 (5-15); BUN 14 mg/dL (4-19); BUN/Creat Ratio 18.1 RATIO (10-20); Calcium,Total 9.5 mg/dL (7.6-11.0); Carbon Dioxide 25.3 mmol/L (21.0-32.0); Chloride 104 mmol/L (98-108); Ferritin 88 ng/mL (22-378); Globulin 2.7 g/dL (2.2-4.2); Glucose 82 mg/dL (70-99); Iron 81 ug/dL (50-170); Potassium 4.4 mmol/L (3.3-5.1)
== END | disposition home or self-care (01) ==
LOC: BIMLAB 10:46
PROVIDERS: PCP Internal Medicine; Visit Provider Physician Assistant
DX: D50.9 Iron deficiency anemia, unspecified (principal); E03.9 Hypothyroidism, unspecified
CPT/HCPCS: 36415; 80053; 82728; 83540; 84443; 85025

== ENCOUNTER → 2025-02-02 | Outpatient (CLI) | payer MEDICAID, SELFPAY ==
[2025-02-02 15:16] LABS: Hematocrit 40.9 % (37-47); Hemoglobin 13.5 g/dL (12.0-15.0); Immature Granulocytes Count 0.040 X10^3/uL (0.0-0.0); Mean Corp Hgb Conc 33.0 g/dL (32-36); Mean Corpuscular Volume 91.1 fL (81-99); Mean Platelet Vol. 10.8 fl (6.2-12.0); NRBC Flagged by Analyzer 0 % (0-5); Platelet Count 382 K/mm3 (150-450); RBC Distribution Width CV 12.6 % (11.6-14.6); RBC Distribution Width SD 41.5 fl (35.1-43.9); Red Blood Count 4.49 M/mm3 (4.2-5.4); White Blood Count 10.0 K/mm3 (4.4-11.0)
== END | disposition home or self-care (01) ==
LOC: LAB 13:24
PROVIDERS: PCP Internal Medicine; Referring Provider Physician Assistant; Visit Provider Physician Assistant
DX: D64.9 Anemia, unspecified (principal)
CPT/HCPCS: 36415; 85025